=== PATIENT | female | born 1950 | race Caucasian/White ===

== ENCOUNTER 2022-09-29 14:18 | Observation (INO) | payer OTHER ==
--- OUTSIDE RECORDS SUMMARY | 2022-09-29 14:39 | XMS REPORT | Continuity of Care Document ---
:1950 Author Organization [facility] t Address [address] [place] [address] Care Team Providers Name Role Phone AURELIO FRAGOSO Primary Care Physician Unavailable JASBIR BETANCOURT Attending Clinician Unavailable OSMAR DOOLEY Attending Clinician Unavailable Osmar Sanders Attending Clinician [phone] V[facility] Attending Clinician Unavailable KVNG LEONARD Attending Clinician Unavailable Rose Mary Segura Attending Clinician ROSE MARY CHEN Attending Clinician Unavailable MARIELA GODINEZ Attending Clinician Unavailable JASBIR BETANCOURT M.D. Attending Clinician Unavailable DENIZ GARZA APRN Attending Clinician Unavailable CLEMENT RUFFIN APRN Attending Clinician Unavailable GREYSON GUTIERREZ M.D. Attending Clinician Unavailable GREYSON GUTIERREZ PA Attending Clinician Unavailable ELROY LONG M.D. Attending Clinician Unavailable TENNILLE DUONG M.D. Attending Clinician Unavailable LINNETTE VIERA M.D. Attending Clinician Unavailable MARIA ESTHER BLANTON NP Attending Clinician Unavailable B[place]-MS, ECHO Attending Clinician Unavailable MAMADOU LOU D.O. Attending Clinician Unavailable RACHEL JERNIGAN Attending Clinician Unavailable BENNY MAHAN M.D. Attending Clinician Unavailable KVNG PILLAI M.D. Attending Clinician Unavailable B[place]-MS, STRESS Attending Clinician Unavailable OSMAR DOOLEY Admitting Clinician Unavailable Payers Payer Name Policy Type Policy Number Effective Date Expiration Date Yaritza dior [employer] MEDICARE PPO [id number] 2020 00:00:00 [employer] MEDICARE OUT [id number] 2021 OF NETWORK 00:00:00 Problems Condition Condition Condition Status Onset Resolution Last Treating Co mments Source Name Details Category Date Date Treatment Clinician Date No known No known Disease Unive rs active active ity of problems problems [facility] History of History of Problem Resolve UT arthritis arthritis d Phys ici ans History of History of Problem Resolve UT Chronic Chronic d Physici back pain back pain ans History of History of Problem Resolve UT esophageal esophageal d Ph ysici reflux reflux ans History of History of Problem Resolve UT essential essential d Phys ici hypertensi hypertensi an s on on Genital Genital Problem Active UT herpes in herpes in Phys ici women women ans Need for Need for Problem Active UT pneumococc pneumococc Ph ysici al al ans vaccinatio vaccinatio n n Chronic Chronic Problem Active UT sinus sinus Physici complaints complaints an s Hoarseness Hoarseness Problem Active U T Physici ans Screening Screening Problem Active UT cholestero cholestero Ph ysici l level l level ans On statin On statin Problem Active UT therapy therapy Physici ans Allergic Allergic Problem Active UT rhinitis rhinitis Physic i ans Excessive Excessive Problem Active UT ear wax ear wax Physici ans Herpes Herpes Problem Active UT simplex simplex Physici type 1 type 1 ans infection infection Other Other Problem Active UT chronic chronic Physici pain pain ans Vitamin D Vitamin D Problem Active UT deficiency deficiency Ph ysici ans 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 ans back pain back pain Numbness Numbness Problem Active UT and and Physici tingling tingling ans Screen for Screen for Problem Active U T colon colon Physici cancer cancer ans Screening Screening Problem Active UT mammogram, mammogram, Ph ysici encounter encounter ans for for Osteoporos Osteoporos Problem Active U T is is Physici screening screening ans Post-menop Post-menop Problem Active U T ausal ausal Physici ans Itch Itch Problem Active UT Physici ans Abnormal Abnormal Problem Active UT LFTs LFTs Physici ans GERD GERD Problem Active UT (gastroeso (gastroeso Ph ysici phageal phageal ans reflux reflux disease) disease) Tingling Tingling Problem Active UT in in Physici extremitie extremitie an s s s Chest pain Chest pain Problem Active U T Physici ans Panic Panic Problem Active UT disorder disorder Physic i ans Recurrent Recurrent Problem Active UT major major Physici depressive depressive an s disorder, disorder, 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 History of History of Problem Active U T colon colon Physici polyps polyps ans Atypical Atypical Problem Active UT chest pain chest pain Ph ysici ans Benign Benign Problem Active UT essential essential Phys ici hypertensi hypertensi an s on on Chronic Chronic Problem Active UT insomnia insomnia Physic i ans Blephariti Blephariti Problem Active U T s, right s, right Physic i eye eye ans Dyspnea Dyspnea Problem Active UT Physici ans Action Action Problem Active UT tremor tremor Physici ans Hyperlipid Hyperlipid Problem Active U T emia emia Physici ans Depression Depression Problem Active U T screen screen Physici ans Risk for Risk for Problem Active UT falls falls Physici ans Insomnia Insomnia Problem Active UT Physici ans Essential Essential Problem Active UT tremor tremor Physici ans Weight Weight Problem Active UT loss loss Physici ans 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 Ph ysici e e ans elevation elevation Mammogram Mammogram Problem Active UT declined declined Physic i ans Mouth Mouth Problem Active UT ulcer ulcer Physici ans Anxiety Anxiety Problem Active UT and and Physici depression depression an s Nausea Nausea Problem Active UT Physici ans Abdominal Abdominal Problem Active UT pain pain Physici ans Blood in Blood in Problem Active UT stool stool Physici ans Diverticul Diverticul Problem Active U T osis of osis of Physici colon colon ans History of History of Problem Active U T dry mouth dry mouth Phys ici ans Glossodyni Glossodyni Problem Active U T a a Physici ans Nausea and Nausea and Problem Active U T vomiting vomiting Physic i ans Chronic Chronic Problem Active UT diarrhea diarrhea Physic i ans Sore Sore Problem Active UT throat throat Physici ans Acute Acute Problem Active UT streptococ streptococ Ph ysici argelia argelia ans pharyngiti pharyngiti s s Skin Skin Problem Active UT lesion lesion Physici ans Major Major Problem Active UT depression depression Ph ysici , , ans recurrent, recurrent, chronic chronic Vaginal Vaginal Problem Active UT itching itching Physici ans Actinic Actinic Problem Active UT keratoses keratoses Phys ici ans Refused Refused Problem Active UT influenza influenza Phys ici vaccine vaccine ans Encounter Encounter Problem Active UT for for Physici monitoring monitoring an s diuretic diuretic therapy therapy Allergies, Adverse Reactions, Alerts Allergy Allergy Status Severity Reaction(s) Onset Inactive Treating Comm ents Source Name Type Date Date Clinician No Known DA Active U 2017- [facility] Allergie 2-07 Clear s 00:00: [place] 00 [facility] NO KNOWN Drug Active Univers ALLERGIE Class ity of S [place] [facility] Family History Family Member Diagnosis Comments Start Date Stop Date Source natural daughter Family history of [facility] alcoholism natural daughter Family history of [facility] depression natural daughter Family history of [facility] attention deficit disorder Social History Social Habit Start Date Stop Date Quantity Comments Source Exposure to 2022-03-24 2022-04-03 Not sure [facility] SARS-CoV-2 (event) 00:00:00 09:33:00 [facility] [place] Sex Assigned At [birth year] [facility] 00:00:00 00:00:00 Medical Branch Smoking Status Start Date Stop Date Source Never smoker [facility] Medications Ordered Filled Start Stop Current Ordering Indication Dosage Frequency Signature Comments Components Source Medication Medication Date Date Medication? Clinician (SIG) Name Name methylPREDN 2021- No [id number] 80mg Univers ISolone 03-25 ity of acetate 16:45: 16:44 [place] (DEPO-MEDRO 00 :00 Medical L) 80 mg/mL Branch 80 mg, lidocaine 1% (PF) (XYLOCAINE) 6 mL, bupivacaine (preserv free) 0.5% (SENSORCAIN E MPF) 0.5 % (5 mg/mL) 3 mL 10 mL injection methylPREDN 2021- No [id number] 80mg Intra-aide Univers ISolone 03-25 91 cular, ity of acetate 16:45: 16:44 ONCE, 1 [place] (DEPO-MEDRO 00 :00 dose, On Medi argelia L) 80 mg/mL Tue Branch 80 mg, 03/25/22 at lidocaine 1145, 10 1% (PF) mL (XYLOCAINE) 6 mL, bupivacaine (preserv free) 0.5% (SENSORCAIN E MPF) 0.5 % (5 mg/mL) 3 mL 10 mL injection No known No Univers medications 03-25 ity of 11:00: [place] 39 [facility] Branch methylPREDN No [id number] Take by [facility] 4 3-07 05-10 mouth ity of mg tablets 00:00: 00:00 SEE-INSTRU [place] 00 :00 CTIONS. Medical follow Branch package directions hydroCHLORO hydroCHLORO 2019-11 Yes MOHAMMAD TAKE 1 UT thiazide 25 thiazide 25 1-30 MADJID TABLET BY Physici MG Oral MG Oral 00:00: M.D. MOUTH ans Tablet Tablet 00 EVERY MORNING Metoprolol Metoprolol Yes MOHAMMAD TAKE 1 UT Succinate Succinate 8-13 MADJID TABLET BY Physici ER 50 MG ER 50 MG 00:00: M.D. MOUTH ans Oral Tablet Oral Tablet 00 EVERY DAY Extended Extended Release 24 Release 24 Hour Hour Losartan Losartan 2018-11 Yes MOHAMMAD Q0.5D Take 1 UT Potassium Potassium 2-17 MADJID tablet by Physici 50 MG Oral 50 MG Oral 00:00: M.D. mouth ans Tablet Tablet 00 twice a day Omeprazole Omeprazole 2018- Yes GREYSON QD TAKE 1 UT 40 MG Oral 40 MG Oral 9-24 MATT CAPSULE BY Physici Capsule Capsule 00:00: PA MOUTH ans Delayed Delayed 00 EVERY DAY Release Release Zolpidem Zolpidem 2018- Yes [place] TAKE 1 UT Tartrate 10 Tartrate 10 5-24 SATTAR TABLET BY Physici MG Oral MG Oral 00:00: M.D. MOUTH AT ans Tablet Tablet 00 BEDTIME Propranolol Propranolol 2018- Yes [place] 1 QD TAKE 1 UT HCl - 10 MG HCl - 10 MG 5-24 SATTAR TABLET Physici Oral Tablet Oral Tablet 00:00: M.D. DAILY ans 00 Shingrix 50 Shingrix 50 2018- Yes [place] IM: 0.5 mL UT MCG MCG 1-17 SATTAR 2-dose Physici Intramuscul Intramuscul 00:00: M.D. series at ans ar ar 00 0 and 2 to Suspension Suspension 6 months Reconstitut Reconstitut ed ed Vitamin D Vitamin D Yes UT 1000 UNIT 1000 UNIT Physi ci CAPS CAPS ans Desvenlafax Desvenlafax Yes 1 tablet UT ine ER 100 ine ER 100 by mouth Physici MG Oral MG Oral once daily ans Tablet Tablet Extended Extended Release 24 Release 24 Hour Hour Ondansetron Ondansetron Yes 1 TABLET UT 4 MG Oral 4 MG Oral BY MOUTH P hysici Tablet Tablet EVERY 8 ans Disintegrat Disintegrat HOURS ing ing NEEDED FOR NAUSEA. HYDROcodone HYDROcodone Yes 1 Q8H TAKE 1 UT -Acetaminop -Acetaminop TABLET Physici hen 10-325 hen 10-325 EVERY 8 ans MG Oral MG Oral HOURS PRN Tablet Tablet tiZANidine tiZANidine Yes TAKE UT HCl - 4 MG HCl - 4 MG CAPSULE Physici Oral Oral PRN ans Capsule Capsule valACYclovi valACYclovi Yes 1 QD TAKE 1 UT r HCl - 500 r HCl - 500 TABLET Physici MG Oral MG Oral DAILY. ans Tablet Tablet Immunizations Ordered Immunization Filled Immunization Date Status Commen ts Source Name Name Project Bionic 2020-12-19 Completed [facility] COVID-19 Vacc 30 14:40:00 MCG/0.3ML Intramuscular Suspension Shingrix 50 MCG/0.5ML 2020-07-17 Completed [facility] Intramuscular 00:00:00 Suspension Reconstituted Fluzone Quadrivalent 2018-08-09 Completed [facility] P [facility]ysicians 0.5 ML Intramuscular 00:00:00 Suspension Prefilled Syringe Hepatitis A, adult 2017-08-27 Completed [facility] 09:01:00 Fluzone High-Dose 0.5 2017-08-26 Completed [facility] ML Intramuscular 15:09:00 Suspension Prefilled Syringe Hepatitis B, adult 2017-08-26 Completed [facility] 08:12:00 Pneumococcal 2016-10-23 Completed [facility] polysaccharide 16:02:00 vaccine, 23 valent Fluzone Quadrivalent 2016-09-22 Completed [facility] 0.5 ML Intramuscular 11:35:00 Suspension Fluzone Quadrivalent 2015-10-16 Completed [facility] 0.5 ML Intramuscular 00:00:00 Suspension Prevnar 13 2015-05-09 Completed [facility] Intramuscular 00:00:00 Suspension Zoster (Zostavax) 2013-08-04 Completed [facility] 00:00:00 Tdap 2009-08-04 Completed [facility] 00:00:00 Vital Signs Vital Name Observation Time Observation Value Comments Source Systolic blood 2022-03-25 147 mm[Hg] University of pressure 16:00:00 [facility] Diastolic blood 2022-03-25 83 mm[Hg] University o f pressure 16:00:00 [facility] Heart rate 2022-03-25 69 /min University of 16:00:00 [facility] Body temperature 2022-03-25 36.28 Kirsten University of 16:00:00 [facility] Body height 2022-03-25 154.9 cm University of 16:00:00 [facility] Body weight 2022-03-25 62.914 kg University of 16:00:00 [facility] BMI 2022-03-25 26.21 kg/m2 University :00:00 [facility] Systolic blood 2020-10-15 138 mm[Hg] [place] [facility] pressure 15:39:00 Position: Sitting Diastolic blood 2020-10-15 82 mm[Hg] [place] [facility] pressure 15:39:00 Position: Sitting Body height 2020-10-15 61 [in_us] [facility] 15:39:00 Weight 2020-10-15 133 [lb_av] [facility] 15:39:00 Body mass index 2020-10-15 25.13 kg/m2 [facility] (BMI) [Ratio] 15:39:00 Heart Rate 2020-10-15 62 /min [facility] 15:39:00 Systolic blood 2020-08-16 120 mm[Hg] Location[place] [facility] pressure 14:43:00 Position: Sitting Diastolic blood 2020-08-16 75 mm[Hg] Location[place]; [place] [facility] [facility] pressure 14:43:00 Position: Sitting Body height 2020-08-16 61 [in_us] [facility] 14:43:00 Weight 2020-08-16 132.1875 [lb_av] [facility] ns 14:43:00 Body mass index 2020-08-16 24.98 kg/m2 [facility] (BMI) [Ratio] 14:43:00 Body temperature 2020-08-16 98 [degF] Method: [facility] ns 14:43:00 Temporal Respiratory rate 2020-08-16 16 /min [facility] ns 14:43:00 Heart Rate 2020-08-16 65 /min Location: [place] [facility] 14:43:00 Brachial Artery; Systolic blood 2020-01-09 103 mm[Hg] Location[place] [facility] pressure 16:04:00 Position: Sitting Diastolic blood 2020-01-09 71 mm[Hg] [place] [facility] [facility] pressure 16:04:00 Position: Sitting Body height 2020-01-09 61 [in_us] [facility] 16:04:00 Weight 2020-01-09 129 [lb_av] [facility] 16:04:00 Body mass index 2020-01-09 24.37 kg/m2 [facility] (BMI) [Ratio] 16:04:00 Body temperature 2020-01-09 97.6 [degF] Method: [facility] ns 16:04:00 Temporal Heart Rate 2020-01-09 73 /min [facility] 16:04:00 Respiratory rate 2020-01-09 15 /min [facility] Phys[facility] ns 16:04:00 BP Systolic 2019-10-18 118 mm[Hg] [place] [facility] 15:33:00 Position: Sitting BP Diastolic 2019-10-18 72 mm[Hg] [place] [facility] 15:33:00 Position: Sitting Height 2019-10-18 61 [in_us] [facility] 15:33:00 Weight 2019-10-18 124 [lb_av] [facility] 15:33:00 Body Mass Index 2019-10-18 23.43 kg/m2 [facility] Calculated 15:33:00 Heart Rate 2019-10-18 49 /min Location: [place] [facility] 15:33:00 Radial; Quality: Normal BP Systolic 2019-09-08 154 mm[Hg] Location: [place] [facility] 15:05:00 Position: Sitting BP Diastolic 2019-09-08 91 mm[Hg] Location[place] [facility] 15:05:00 Position: Sitting Height 2019-09-08 61 [in_us] [facility] 15:05:00 Weight 2019-09-08 125.1875 [lb_av] [place] [facility] 15:05:00 Body Mass Index 2019-09-08 23.65 kg/m2 [facility] Calculated 15:05:00 Heart Rate 2019-09-08 60 /min Location: [place] [facility] 15:05:00 Brachial Artery; BP Systolic 2019-08-30 125 mm[Hg] Location: [place] [facility] 14:24:00 Position: Sitting BP Diastolic 2019-08-30 76 mm[Hg] Location[place] [facility] 14:24:00 Position: Sitting Height 2019-08-30 61 [in_us] [facility] 14:24:00 Weight 2019-08-30 124 [lb_av] [facility] 14:24:00 Body Mass Index 2019-08-30 23.43 kg/m2 [facility] Calculated 14:24:00 Heart Rate 2019-08-30 59 /min [facility] 14:24:00 BP Systolic 2019-08-09 127 mm[Hg] Location: [place]; [facility] 15:04:00 Position: Sitting BP Diastolic 2019-08-09 79 mm[Hg] Location: [place]; [facility] 15:04:00 Position: Sitting Height 2019-08-09 61 [in_us] [facility] 15:04:00 Weight 2019-08-09 122 [lb_av] [facility] 15:04:00 Body Mass Index 2019-08-09 23.05 kg/m2 [facility] Calculated 15:04:00 Heart Rate 2019-08-09 61 /min [facility] 15:04:00 BP Systolic 2019-08-08 142 mm[Hg] [place] [facility] 15:23:00 Position: Sitting BP Diastolic 2019-08-08 83 mm[Hg] [place] [facility] 15:23:00 Position: Sitting Height 2019-08-08 61 [in_us] [facility] 15:23:00 Weight 2019-08-08 124 [lb_av] [facility] 15:23:00 Body Mass Index 2019-08-08 23.43 kg/m2 [facility] Calculated 15:23:00 Heart Rate 2019-08-08 57 /min [facility] 15:23:00 Respiration Rate 2019-08-08 16 /min [place] [facility] 15:23:00 BP Systolic 2019-06-02 132 mm[Hg] [place] [facility] 15:05:00 Position: Sitting BP Diastolic 2019-06-02 76 mm[Hg] [place] [facility] 15:05:00 Position: Sitting Heart Rate 2019-06-02 57 /min Location: L [facility] 15:05:00 Brachial Artery; BP Systolic 2019-06-02 142 mm[Hg] [place] [facility] 15:01:00 Position: Sitting BP Diastolic 2019-06-02 80 mm[Hg] [place] [facility] 15:01:00 Position: Sitting Heart Rate 2019-06-02 59 /min Location: L [facility] 15:01:00 Brachial Artery; Height 2019-06-02 61 [in_us] [facility] 15:01:00 Weight 2019-06-02 132.0625 [lb_av] [facility] 15:01:00 Body Mass Index 2019-06-02 24.95 kg/m2 [facility] Calculated 15:01:00 Temperature 2019-06-02 97.4 [degF] Method: [facility] 15:01:00 Temporal Respiration Rate 2019-06-02 16 /min Quality: Normal [facility] 15:01:00 BP Systolic 2019-04-08 127 mm[Hg] Location: [place]; [facility] 14:47:00 Position: Sitting BP Diastolic 2019-04-08 73 mm[Hg] Location: [place]; [facility] 14:47:00 Position: Sitting Height 2019-04-08 61 [in_us] [facility] 14:47:00 Weight 2019-04-08 134 [lb_av] [facility] 14:47:00 Body Mass Index 2019-04-08 25.32 kg/m2 [facility] Calculated 14:47:00 Temperature 2019-04-08 98 [degF] Method: [facility] 14:47:00 Temporal Heart Rate 2019-04-08 53 /min [facility] 14:47:00 Respiration Rate 2019-04-08 16 /min [facility] 14:47:00 BP Systolic 2019-01-10 136 mm[Hg] Location: [place]; [facility] 15:12:00 Position: Sitting BP Diastolic 2019-01-10 84 mm[Hg] Location: [place]; [facility] 15:12:00 Position: Sitting Height 2019-01-10 61 [in_us] [facility] 15:12:00 Weight 2019-01-10 144 [lb_av] [facility] 15:12:00 Body Mass Index 2019-01-10 27.21 kg/m2 [facility] Calculated 15:12:00 Heart Rate 2019-01-10 68 /min [facility] 15:12:00 Respiration Rate 2019-01-10 16 /min [facility] 15:12:00 BP Systolic 2018-12-16 107 mm[Hg] Location: [place]; [facility] 14:56:00 Position: Sitting BP Diastolic 2018-12-16 72 mm[Hg] Location: [place]; [facility] 14:56:00 Position: Sitting Height 2018-12-16 61 [in_us] [facility] 14:56:00 Weight 2018-12-16 141.125 [lb_av] [facility] 14:56:00 Body Mass Index 2018-12-16 26.67 kg/m2 [facility] Calculated 14:56:00 Heart Rate 2018-12-16 87 /min [facility] 14:56:00 Respiration Rate 2018-12-16 16 /min [facility] 14:56:00 BP Systolic 2018-12-02 109 mm[Hg] [place] [facility] 11:17:00 Position: Sitting BP Diastolic 2018-12-02 70 mm[Hg] [place] [facility] 11:17:00 Position: Sitting Height 2018-12-02 61 [in_us] [facility] 11:17:00 Weight 2018-12-02 138.0625 [lb_av] [facility] 11:17:00 Body Mass Index 2018-12-02 26.09 kg/m2 [facility] Calculated 11:17:00 Heart Rate 2018-12-02 82 /min [facility] 11:17:00 Respiration Rate 2018-12-02 16 /min [facility] 11:17:00 Temperature 2018-12-02 98 [degF] Method: [facility] 11:17:00 Temporal BP Systolic 2018-08-31 125 mm[Hg] Location[place] [facility] 14:24:00 Position: Sitting BP Diastolic 2018-08-31 80 mm[Hg] [place] [facility] 14:24:00 Position: Sitting Height 2018-08-31 61 [in_us] [facility] 14:24:00 Weight 2018-08-31 137.5 [lb_av] [facility] 14:24:00 Body Mass Index 2018-08-31 25.98 kg/m2 [facility] Calculated 14:24:00 Heart Rate 2018-08-31 102 /min [facility] 14:24:00 BP Systolic 2018-08-25 135 mm[Hg] Location[place] [facility] 15:42:00 Position: Sitting BP Diastolic 2018-08-25 87 mm[Hg] [place] [facility] 15:42:00 Position: Sitting Height 2018-08-25 61 [in_us] [facility] 15:42:00 Weight 2018-08-25 140.1875 [lb_av] [facility] 15:42:00 Body Mass Index 2018-08-25 26.49 kg/m2 [facility] Calculated 15:42:00 Heart Rate 2018-08-25 99 /min Location: L [facility] 15:42:00 Brachial Artery; Temperature 2018-08-25 98.1 [degF] Method: [facility] 15:42:00 Temporal Respiration Rate 2018-08-25 16 /min Quality: Normal [facility] 15:42:00 BP Systolic 2018-08-17 122 mm[Hg] Location: [place]; [facility] 16:06:00 Position: Sitting BP Diastolic 2018-08-17 73 mm[Hg] Location: [place]; [facility] 16:06:00 Position: Sitting Height 2018-08-17 61 [in_us] [facility] 16:06:00 Weight 2018-08-17 137.125 [lb_av] [facility] 16:06:00 Body Mass Index 2018-08-17 25.91 kg/m2 [facility] Calculated 16:06:00 Heart Rate 2018-08-17 85 /min [facility] 16:06:00 BP Systolic 2018-08-16 118 mm[Hg] [place] [facility] 15:26:00 Position: Sitting BP Diastolic 2018-08-16 79 mm[Hg] Location: [place]; [facility] 15:26:00 Position: Sitting Height 2018-08-16 61 [in_us] [facility] 15:26:00 Weight 2018-08-16 135.375 [lb_av] [facility] 15:26:00 Body Mass Index 2018-08-16 25.58 kg/m2 [facility] Calculated 15:26:00 Heart Rate 2018-08-16 79 /min [facility] 15:26:00 Temperature 2018-08-16 97.8 [degF] Method: [facility] 15:26:00 Temporal Respiration Rate 2018-08-16 14 /min [facility] 15:26:00 BP Systolic 2018-08-09 126 mm[Hg] [place] 14:11:00 Position: Sitting BP Diastolic 2018-08-09 85 mm[Hg] [place] [facility] 14:11:00 Position: Sitting Height 2018-08-09 61 [in_us] [facility] 14:11:00 Weight 2018-08-09 136 [lb_av] [facility] 14:11:00 Body Mass Index 2018-08-09 25.7 kg/m2 [facility] Calculated 14:11:00 Heart Rate 2018-08-09 80 /min [facility] 14:11:00 Temperature 2018-08-09 97.6 [degF] Method: [facility] 14:11:00 Temporal Respiration Rate 2018-08-09 16 /min [facility] 14:11:00 BP Systolic 2018-07-15 149 mm[Hg] Location: [place]; [facility] 14:21:00 Position: Sitting BP Diastolic 2018-07-15 93 mm[Hg] Location: [place]; [facility] 14:21:00 Position: Sitting Height 2018-07-15 61 [in_us] [facility] 14:21:00 Weight 2018-07-15 134.3125 [lb_av] [facility] 14:21:00 Body Mass Index 2018-07-15 25.38 kg/m2 [facility] Calculated 14:21:00 Temperature 2018-07-15 98.2 [degF] Method: [facility] 14:21:00 Temporal Heart Rate 2018-07-15 86 /min Location: L [facility] 14:21:00 Brachial Artery; Respiration Rate 2018-07-15 16 /min Quality: Normal [facility] 14:21:00 BP Systolic 2018-06-24 128 mm[Hg] [place] [facility] 15:48:00 Position: Sitting BP Diastolic 2018-06-24 82 mm[Hg] Location: [place]; [facility] 15:48:00 Position: Sitting Height 2018-06-24 61 [in_us] [facility] 15:48:00 Weight 2018-06-24 135 [lb_av] [facility] 15:48:00 Body Mass Index 2018-06-24 25.51 kg/m2 [facility] Calculated 15:48:00 Heart Rate 2018-06-24 92 /min [facility] 15:48:00 BP Systolic 2018-05-14 138 mm[Hg] Location: [place]; [facility] 16:11:00 Position: Sitting BP Diastolic 2018-05-14 86 mm[Hg] Location: [place]; [facility] 16:11:00 Position: Sitting Height 2018-05-14 61 [in_us] [facility] 16:11:00 Weight 2018-05-14 135.125 [lb_av] [facility] 16:11:00 Body Mass Index 2018-05-14 25.53 kg/m2 [facility] Calculated 16:11:00 Temperature 2018-05-14 98.1 [degF] Method: [facility] 16:11:00 Temporal Heart Rate 2018-05-14 86 /min [facility]: [facility] 16:11:00 Brachial Artery; Respiration Rate 2018-05-14 16 /min Quality: Normal [facility] 16:11:00 BP Systolic 2018-03-19 111 mm[Hg] Location: [place]; [facility] 15:01:00 Position: Sitting BP Diastolic 2018-03-19 72 mm[Hg] Location: [place]; [facility] 15:01:00 Position: Sitting Height 2018-03-19 61 [in_us] [facility] 15:01:00 Weight 2018-03-19 129 [lb_av] [facility] 15:01:00 Body Mass Index 2018-03-19 24.37 kg/m2 [facility] Calculated 15:01:00 Temperature 2018-03-19 97.9 [degF] Method: [facility] 15:01:00 Temporal Heart Rate 2018-03-19 96 /min Quality: Normal [facility] 15:01:00 BP Systolic 2017-12-24 100 mm[Hg] Location: LUE; [facility] 15:12:00 Position: Sitting BP Diastolic 2017-12-24 66 mm[Hg] Location: LUE; [facility] 15:12:00 Position: Sitting Height 2017-12-24 61 [in_us] [facility] 15:12:00 Weight 2017-12-24 133.375 [lb_av] [facility] 15:12:00 Body Mass Index 2017-12-24 25.2 kg/m2 [facility] Calculated 15:12:00 Temperature 2017-12-24 98.5 [degF] Method: Oral [facility] 15:12:00 Heart Rate 2017-12-24 68 /min Location: L [facility] 15:12:00 Brachial Artery; Respiration Rate 2017-12-24 16 /min Quality: Normal [facility] 15:12:00 BP Systolic 2017-12-23 183 mm[Hg] Location: LUE; [facility] 15:28:00 Position: Standing BP Diastolic 2017-12-23 123 mm[Hg] Location: LUE; [facility] 15:28:00 Position: Standing Heart Rate 2017-12-23 75 /min [facility] 15:28:00 BP Systolic 2017-12-23 178 mm[Hg] Location: LUE; [facility] 15:27:00 Position: Sitting BP Diastolic 2017-12-23 107 mm[Hg] Location: LUE; [facility] 15:27:00 Position: Sitting Heart Rate 2017-12-23 71 /min [facility] 15:27:00 BP Systolic 2017-12-23 177 mm[Hg] Location: LUE; [facility] 15:26:00 Position: Supine BP Diastolic 2017-12-23 96 mm[Hg] Location: LUE; [facility] 15:26:00 Position: Supine Heart Rate 2017-12-23 67 /min [facility] 15:26:00 BP Systolic 2017-12-23 166 mm[Hg] Location: LUE; [facility] 15:07:00 Position: Sitting BP Diastolic 2017-12-23 88 mm[Hg] Location: LUE; [facility] 15:07:00 Position: Sitting BP Systolic 2017-12-23 166 mm[Hg] Location: LUE; [facility] 15:01:00 Position: Sitting BP Diastolic 2017-12-23 100 mm[Hg] Location: [place]UE; [facility] 15:01:00 Position: Sitting Height 2017-12-23 61 [in_us] [facility] 15:01:00 Weight 2017-12-23 133 [lb_av] [facility] 15:01:00 Body Mass Index 2017-12-23 25.13 kg/m2 [facility] Calculated 15:01:00 Temperature 2017-12-23 98 [degF] Method: [facility] 15:01:00 Temporal Respiration Rate 2017-12-23 16 /min [facility] 15[facility]01:00 Heart Rate 2017-12-23 88 /min [facility] 15:01:00 BP Systolic 2017-11-26 152 mm[Hg] Location: LUE; [facility] 13:29:00 Position: Sitting BP Diastolic 2017-11-26 92 mm[Hg] Location: LUE[facility] 13:29:00 Position: Sitting Height 2017-11-26 61 [in_us] [facility] 13:29:00 Weight 2017-11-26 134.5 [lb_av] [facility] 13:29:00 Body Mass Index 2017-11-26 25.41 kg/m2 [facility] Calculated 13:29:00 Temperature 2017-11-26 97.1 [degF] Method: [facility] 13:29:00 Temporal Heart Rate 2017-11-26 87 /min Location: L [facility] 13:29:00 Brachial Artery; Respiration Rate 2017-11-26 16 /min Quality: Normal [facility] 13:29:00 BP Systolic 2017-11-19 132 mm[Hg] Location: LUE; [facility] 14:41:00 Position: Sitting BP Diastolic 2017-11-19 86 mm[Hg] Location: LUE; [facility] 14:41:00 Position: Sitting Height 2017-11-19 61 [in_us] [facility] 14:41:00 Weight 2017-11-19 129 [lb_av] [facility] 14:41:00 Body Mass Index 2017-11-19 24.37 kg/m2 [facility] Calculated 14:41:00 Temperature 2017-11-19 98.4 [degF] Method: [facility] 14:41:00 Temporal Heart Rate 2017-11-19 99 /min Location: L [facility] 14:41:00 Brachial Artery; Respiration Rate 2017-11-19 16 /min Quality: Normal [facility] 14:41:00 BP Systolic 2017-10-21 141 mm[Hg] Location: LUE; [facility] 16:25:00 Position: Sitting BP Diastolic 2017-10-21 86 mm[Hg] Location: LUE; [facility] 16:25:00 Position: Sitting Height 2017-10-21 61 [in_us] [facility] 16:25:00 Weight 2017-10-21 128.5 [lb_av] [facility] 16:25:00 Body Mass Index 2017-10-21 24.28 kg/m2 [facility] Calculated 16:25:00 Temperature 2017-10-21 97.1 [degF] Method: [facility] 16:25:00 Temporal Heart Rate 2017-10-21 92 /min Location: L [facility] 16:25:00 Brachial Artery; Respiration Rate 2017-10-21 16 /min Quality: Normal [facility] 16:25:00 BP Systolic 2017-09-16 139 mm[Hg] Location: LUE; [facility] 13:14:00 Position: Sitting BP Diastolic 2017-09-16 83 mm[Hg] Location: LUE; [facility] 13:14:00 Position: Sitting Height 2017-09-16 61 [in_us] [facility] 13:14:00 Weight 2017-09-16 129.125 [lb_av] [facility] 13:14:00 Body Mass Index 2017-09-16 24.4 kg/m2 [facility] Calculated 13:14:00 Temperature 2017-09-16 96.6 [degF] Method: [facility] 13:14:00 Temporal Heart Rate 2017-09-16 97 /min Location: L [facility] 13:14:00 Brachial Artery; Respiration Rate 2017-09-16 16 /min [facility] 13:14:00 Procedures Procedure Date / Time Performing Clinician Source Performed DEXA PERIPHERAL (FOREARM) [facility] COMP. METABOLIC PANEL 2022-03-25 [id number] [QL] BASIC METABOLIC 2020-10-15 00:00:00 [facility] PANEL W/EGFR [Q] LIPID PANEL WITH 2020-05-08 00:00:00 [facility] REFLEX TO DIRECT LDL [QL] CMP W/EGFR 2020-05-08 00:00:00 [facility] [QLH] CULTURE, STOOL 2019-10-18 00:00:00 [facility] (CAMPYLOBACTER, SALMONELLA/SHIGELLA) [QLH] CLOSTRIDIUM 2019-10-18 00:00:00 [facility] DIFFICILE TOXIN A AND B, EIA [QLH] FECAL LEUKOCYTE 2019-10-18 00:00:00 [facility] STAIN [QLH] CALPROTECTIN, STOOL 2019-10-18 00:00:00 [facility] EGD 2019-08-10 00:00:00 [facility] (Esophagogastroduodenosco py) CT Abdomen/Pelvis w/wo 2019-08-09 00:00:00 [facility] contrast 12049 [QH] LIPID PANEL WITH 2019-08-08 00:00:00 [facility] REFLEX TO DIRECT LDL [QLH] CMP W/EGFR 2019-08-08 00:00:00 [facility] [QLH] ALKALINE 2019-04-13 00:00:00 [facility] PHOSPHATASE ISOENZYMES (ALP ISO.) [QLH] GGT 2019-04-13 00:00:00 [facility] [Q] HEPATITIS PANEL, 2019-04-13 00:00:00 [facility] ACUTE W/REFLEX US Liver [id number] 2019-04-13 00:00:00 [facility] [QLH] CBC (INCLUDES 2019-04-08 00:00:00 [facility] DIFF/PLT) [QLH] CMP W/EGFR 2019-04-08 00:00:00 [facility] [QLH] TSH, 3RD GENERATION 2019-04-08 00:00:00 [facility] W/REFLEX TO FT4 [Q] CULTURE, STOOL, 2019-04-08 00:00:00 [facility] HAILEY/SHIG/CAMPY AND SHIGA TOXINS EIA W/RFL E.COLI O157 CULT [Q] OVA AND PARASITES, 2019-04-08 00:00:00 [facility] STOOL CONC/PERM SMEAR, 2 SPEC [QLH] FECAL LEUKOCYTE 2019-04-08 00:00:00 [facility] STAIN [QLH] CLOSTRIDIUM 2019-04-08 00:00:00 [facility] DIFFICILE TOXIN A AND B, EIA [QLH] MAGNESIUM 2019-04-08 00:00:00 [facility] [QLH] PHOSPHATE ( 2019-04-08 00:00:00 [facility] PHOSPHORUS) Abdomen AP view [id number] 2019-04-08 00:00:00 [facility] [QH] LIPID PANEL WITH 2019-01-10 00:00:00 [facility] REFLEX TO DIRECT LDL [QLH] HEPATIC FUNCTION 2019-01-10 00:00:00 [facility] PANEL [QH] LIPID PANEL WITH 2018-08-31 00:00:00 [facility] REFLEX TO DIRECT LDL [QLH] HEPATIC FUNCTION 2018-08-31 00:00:00 [facility] PANEL [N] 2D Echo complete, 2018-08-17 00:00:00 [facility] with Doppler [id number] [QH] LIPID PANEL WITH 2018-08-09 00:00:00 [facility] REFLEX TO DIRECT LDL [QLH] CBC (INCLUDES 2018-08-09 00:00:00 [facility] DIFF/PLT) [QLH] CMP W/EGFR 2018-08-09 00:00:00 [facility] [QLH] TSH, 3RD GENERATION 2018-08-09 00:00:00 [facility] W/REFLEX TO FT4 Colonoscopy 2018-06-28 00:00:00 [facility] History of [facility] Surgery [facility] Reconstruction [facility] Hysterectomy [facility] Plan of Care Planned Activity Planned Date Details Comments Source Future Scheduled Test 2020-12-03 [QL] BASIC METABOLIC [facility] 00:00:00 PANEL W/EGFR [code = [QL] BASIC METABOLIC PANEL W/EGFR] Diagnostic Test 2020-01-23 [QH] LIPID PANEL WITH [facility] Pending 00:00:00 REFLEX TO DIRECT LDL [code = [QH] LIPID PANEL WITH REFLEX TO DIRECT LDL] Diagnostic Test 2020-01-23 [QLH] CMP W/EGFR [code [facility] Pending 00:00:00 = [QLH] CMP W/EGFR] Diagnostic Test 2019-08-16 EGD [facility] Pending 00:00:00 (Esophagogastroduodeno scopy) [code = EGD (Esophagogastroduodeno scopy)] Diagnostic Test 2019-08-16 EGD [facility] Pending 00:00:00 (Esophagogastroduodeno scopy) [code = EGD (Esophagogastroduodeno scopy)] Diagnostic Test 2019-06-16 [QH] LIPID PANEL WITH [facility] Pending 00:00:00 REFLEX TO DIRECT LDL [code = [QH] LIPID PANEL WITH REFLEX TO DIRECT LDL] Diagnostic Test 2019-06-16 [QLH] HEPATIC FUNCTION [facility] Pending 00:00:00 PANEL [code = [QLH] HEPATIC FUNCTION PANEL] Diagnostic Test 2018-10-25 [QH] LIPID PANEL WITH [facility]ending 00:00:00 REFLEX TO DIRECT LDL [code = [QH] LIPID PANEL WITH REFLEX TO DIRECT LDL] Diagnostic Test 2018-10-25 [QLH] HEPATIC FUNCTION [facility] Pending 00:00:00 PANEL [code = [QLH] HEPATIC FUNCTION PANEL] Diagnostic Test 2018-08-17 [N] 2D Echo complete, [facility] Pending 00:00:00 with Doppler 57008 [code = [N] 2D Echo complete, with Doppler [id number]] Diagnostic Test 2018-06-29 Colonoscopy [code = [facility] 00:00:00 [id number]] Encounters Start End Encounter Admission Attending Care Care Encounter Source Date/Time Date/Time Type Type Clinicians Facility Department ID 2022-08-11 Outpatient [facility] [id number] [place] 17:32:05 [id number] [facility] 2021-03-23 Outpatient ASIA [facility] [id number] [place] 02:53[facility] 2022-04-03 2022-04-03 Outpatient [facility] [id number] Univers 09:34:18 23:59:00 iveth XIAOy of [place] [facility] 2022-04-03 2022-04-03 [facility] [id number] Univers 09:30:00 23:59:00 Encounter denisa, SPECIALTY [id number] it[id number] [place] bailee HORN 800 [facility] 2022-03-25 2022-03-25 [facility] [id number] Univers 11:24:38 23:59:00 Encounter denisa SPECIALTY [id number] it[id number] [id number] [place] bailee HORN 809 [facility] 2022-03-25 2022-03-25 Outpatient [facility] [id number] Univers 11:24:38 23:59:00 [facility]-25 2022-03-25 [facility] [id number] Univers 11:24:28 23:59:00 Encounter denisa SPECIALTY [id number] it[id number] [id number] Mn bailee DAYANAYousif [address] [place] [address] 2022-03-25 2022-03-25 Cadmium Plater Vls-Lab [facility] [id number] Univers 13:45:00 14:00:00 Visit Osmar Dooley SPECIALTY [id number] [id number] [id number] [place] bailee HORN 353 [facility] 2022-03-25 2022-03-25 Outpatient [facility] [id number] Univers 10:40:00 11:51:34 iveth XIAOy [facility] 2022-03-25 2022-03-25 Office [facility] [id number] Univers 10:40:00 11:51:34 Visit garymalcolmon, SPECIALTY [id number] ity [facility] [id number] [id number] Mn bailee HORN 198 [facility] 2022-02-13 2022-02-13 Outpatient [facility] [id number] Univers 11:20:00 11:20:00 ethan XIAO [facility] 2022-02-03 2022-02-03 Outpatient [facility] [id number] Univers 09:50:00 09:50:00 KVNG ity [facility] 2022-01-20 2022-01-20 [facility] [id number] Univers 14:19:28 23:59:00 Encounter Rose Mary PRIMARY [id number] [id number] [id number] [place] bailee [address] [place] 2022-01-20 2022-01-20 Outpatient R [facility] [id number] Univers 14:19:28 23:59:00 ROSE MARY ity [facility] 2022-01-20 2022-01-20 Office [facility] [id number] Univers 14:00:00 15:14:44 Visit Rose Mary PRIMARY [id number] it [id number] [id number] [place] dicpriscilla [address] [place] 2022-01-20 2022-01-20 Outpatient R [facility] [id number] Univers 14:00:00 15:14:44 ROSE MARY ity of [facility] 2020-12-19 2020-12-19 Appointmen [place], [facility] UTP [id number] [place] 14:40:00 14:40:00 t; CO19, NURSE-COOLE P hysici NURSE-COOL Y ans EY 2020-12-17 2020-12-17 AppointMARK Gonzalez [facility] [id number] [place] 15:00:00 15:00:00 t; JASBIR BETANCOURT lty - P hylacy MARTELL M.D. [place] mart[place] M.D. 2020-10-15 2020-10-15 Appointlang BETANCOURT [facility] Multispecia [id number] [place] 15:20:00 15:20:00 t; JASBIR BETANCOURT lty - P [place] Reyes ans M.D. [address] 2020-08-16 2020-08-16 Appointmen [facility] Family [id number] [place] 14:45:00 14:45:00 t; DENIZ GARZA, SELENA [facility] 2020-06-07 2020-06-07 Appointlang BETANCOURT [facility] Multispecia [id number] [place] 14:20:00 14:20:00 t; JASBIR BETANCOURT lty - P [place] Reyesshalfredo martinez M.D. 2020-01-09 2020-01-09 Appointmen CLEMENT RUFFIN, [facility] Family [id number] [place] 16:00:00 16:00:00 t; SELENA RUFFIN Practice - Ph ysspencer VAUGHAN APRN [facility] 2019-11-21 2019-11-21 Appointmen MATT [facility] Multispecia 5 [id number] [place] 15:15:00 15:15:00 t; [place] RUBI lty - Phy lacy [facility] [place] RUBI 2019-10-18 2019-10-18 Appointlang GUTIERREZ [facility] Multispecia [id number] [place] 15:15:00 15:15:00 t; FLOR RUBI lty - [facility]i ci [facility] FLOR [address]BI [address] 2019-10-03 2019-10-03 [facility] UTP Multispecia 5 [id number] [place] 14:45:00 14:45:00 t; [place] RUBI lty - [facility]y lacy [facility] [place] RUBI [address] 2019-09-08 2019-09-08 Appointmen [facility] Multispecia [id number] [place] 14:45:00 14:45:00 t; ELROY LONG lty - Phys spencer ABBASI M.D. [place] michelle Eid 2019-08-30 2019-08-30 [facility] MATT, UTP Multispecia 5 [id number] [place] 14:30:00 14:30:00 t; FLOR RUBI lty - [facility]i ci [facility] FLOR RUBI 2019-08-16 2019-08-16 Outpatient MHSE MHSE [id number] 09:45:00 09:45:00 [facility] 2019-08-09 2019-08-09 [facility] MATT, UTP Multispecia [id number] [place] 16:00:00 16:00:00 t; FLOR RUBI lty - Physi ci [facility] FLOR [address]BI [address] 2019-08-08 2019-08-08 [facility] [id number] [place] 15:00:00 15:00:00 t; JASBIR BETANCOURT lty - P hysici MOHAMMAD, M.D. [place] michelle Eid 2019-07-11 2019-07-11 [facility] [id number] [place] 15:00:00 15:00:00 t; JASBIR BETANCOURT P hysici MOHAMMAD, M.D. ans M.D. 2019-06-02 2019-06-02 Appoint[facility] [id number] [place] 15:00:00 15:00:00 t; TENNILLE DUONG M.D. Practice - Physici TENNILLE [place] michelle Eid 2019-04-08 2019-04-08 Appoint[facility] [id number] [place] 15:00:00 15:00:00 t; TENNILLE DUONG M.D. Family Marge NULL, Adrian martinez M.D. 2019-01-10 2019-01-10 Appointmen [facility] [id number] [place] 15:00:00 15:00:00 t; JASBIR BETANCOURT Multi-Speci [place] [address] radha meredith M.D. 2018-12-16 2018-12-16 [facility] [id number] [place] 14:40:00 14:40:00 t; JASBIR BETANCOURT Multi-Speci [place] [address] radha meredith M.D. 2018-12-03 2018-12-03 [facility]AMCJ[facility] [id number] [place] 13:45:00 13:45:00 t; [place] ANGLIN [facility] michelle VIERA M.D. 2018-12-02 2018-12-02 [facility] NIKACodiUNC [facility] [id number] [place] 11:00:00 11:00:00 t; TENNILLE DUONG M.D. Family Marge NULL, Adrian martinez M.D. 2018-11-11 2018-11-11 [facility] [id number] [place] 11:00:00 11:00:00 t; ER, MARIA ESTHER, Phy sici DOSS-FOS FRANCESCO GoveaA, CHARTER COACH DRIVER 2018-08-31 2018-08-31 [facility] JOJOAnibalUNC [facility] [id number] [place] 14:00:00 14:00:00 t; JASBIR BETANCOURT Multi P sydni MARTELL M.D. Specialty michelle Eid 2018-08-25 2018-08-25 [facility] [id number] [place] 15:30:00 15:30:00 t; ER, MARIA ESTHER, Phy sici DOSS-FOS CHARTER COACH DRIVER michelle NO MARIA ESTHER, CHARTER COACH DRIVER 2018-08-25 2018-08-25 [facility] DOSS-[facility] [id number] [place] 15:30:00 15:30:00 t; ER, MARIA ESTHER, Family Phy sici DOSS-FOS CHARTER COACH DRIVER Practice ans TER MARIA ESTHER, CHARTER COACH DRIVER 2018-08-20 2018-08-20 [facility] [id number] [place] 08:00:00 08:00:00 t; , ECHO Multi Physic i [facility] Specialty ans S, ECHO 2018-08-17 2018-08-17 Appointmen [facility] [id number] [place] 15:40:00 15:40:00 t; JASBIR BETANCOURT, Multi P sydni MARTELL M.D. Specialty ans [place] 2018-08-16 2018-08-16 Appointmen CLEMENT [facility]FFINUNC [facility] [id number] [place] 15:30:00 15:30:00 t; RUFFIN, SENIOR PRODUCER Family Physi ci CLEMENT, SENIOR PRODUCER Practice ans 2018-08-13 2018-08-13 [facility] [id number] [place] 15:00:00 15:00:00 t; [place] ANGLIN hari VIERA [facility] Stanton ANGLIN 2018-08-09 2018-08-09 [facility] CAR[facility]INEUNC [facility] [id number] [place] 14:00:00 14:00:00 t; MAMADOU LOU, Family Phy sici Ce CEDILLO Practice ans D.ODestiny 2018-07-15 2018-07-15 [facility] 43 [id number] [place] 14:30:00 14:30:00 t; ER, MARIA ESTHER, Family Phy sici DOSS-FOS CHARTER COACH DRIVER Practice ans TERFRANCESCOA, CHARTER COACH DRIVER 2018-06-29 2018-06-29 [facility] [id number] [place] 12:00:00 12:00:00 t; [place] RUBI Multi-Speci Physici luz elena GUTIERREZ [address] an s [place] RUBI 2018-06-24 2018-06-24 [facility] [id number] [place] 16:00:00 16:00:00 t; [place] RUBI Multi-Speci Physici luz elena GUTIERREZ [address] an s [place] RUBI 2018-06-15 2018-06-15 [facility] [id number] [place] 15:00:00 15:00:00 t; [place] RUBI Multi Phy sici MATT, Specialty ans [place] RUBI 2018-06-08 2018-06-08 [facility] [id number] [place] 15:00:00 15:00:00 t; [place] RUBI Multi Phy sici MATT, Specialty ans [place] RUBI 2018-05-14 2018-05-14 [facility] [id number] [place] 15:30:00 15:30:00 t; MARIA ESTHER RUIZ Family Phy sici DOSS-FOS CHARTER COACH DRIVER Practice ans MARIA ESTHER NO CHARTER COACH DRIVER 2018-03-19 2018-03-19 [facility] 41 [id number] [place] 15:00:00 15:00:00 t; MARIA ESTHER RUIZ Family Phy sici DOSS-FOS CHARTER COACH DRIVER Practice ans MARIA ESTHER NO, CHARTER COACH DRIVER 2017-12-24 2017-12-24 [facility] [id number] [place] 15:00:00 15:00:00 t; TENNILLE DUONG M.D. Family Physici [place], Practice ans M.Jagdish 2017-12-23 2017-12-23 [facility] [id number] [place] 15:00:00 15:00:00 t; TENNILLE DUONG M.D. Family Physici [place], Practice ans M.Jagdish 2017-11-26 2017-11-26 Appointmen [facility] [id number] [place] 13:30:00 13:30:00 t; TENNILLE DUONG M.D. Family Physici [place], Practice ans M.Jagdish 2017-11-19 2017-11-19 Appointmen DOSS-FOST [facility] 37 [id number] [place] 14:30:00 14:30:00 t; ERMARIA ESTHER Family Phy sici DOSS-FOS CHARTER COACH DRIVER Practice ans MARIA ESTHER NO, CHARTER COACH DRIVER 2017-11-11 2017-11-11 Appointmen RERE, [facility] [id number] [place] 17:00:00 17:00:00 t; PADMAJA JERNIGANINE Ph ysici RACHEL ans 2017-10-21 2017-10-21 Appointmen DOSS-FO[facility] 36 [id number] [place] 16:30:00 16:30:00 t; ER, MARIA ESTHER, Family Phy sici DOSS-FOS CHARTER COACH DRIVER Practice ans TER, MARIA ESTHER, CHARTER COACH DRIVER 2017-10-13 2017-10-13 Appointmen [facility] [id number] [place] 16:00:00 16:00:00 t; RERE, RACHEL Family Ph ysici RACHEL Practice ans 2017-09-16 2017-09-16 Appointmen [facility] 35 [id number] [place] 13:00:00 13:00:00 t; ER, MARIA ESTHER, Family Phy sici DOSS-FOS CHARTER COACH DRIVER Practice ans TER, MARIA ESTHER, CHARTER COACH DRIVER 2017-08-27 2017-08-27 Appointmen [facility] 35 [id number] [place] 08:30:00 08:30:00 t; ER, MARIA ESTHER, Family Phy sici DOSS-FOS CHARTER COACH DRIVER Practice ans TER, MARIA ESTHER, CHARTER COACH DRIVER 2017-08-26 2017-08-26 Appointmen AD [facility] [id number] [place] 15:00:00 15:00:00 t; TENNILLE DUONG M.D. Physici BEENA, ans M.D. 2017-06-29 2017-06-29 Appointmen AD [facility] UTP [id number] [place] 14:00:00 14:00:00 t; TENNILLE DUONG M.D. Physici BEENA, ans M.D. 2017-06-18 2017-06-18 Appointmen [facility] 33 [id number] [place] 14:00:00 14:00:00 t; ER, MARIA ESTHER, Family Phy sici DOSS-FOS CHARTER COACH DRIVER Practice ans TER, MARIA ESTHER, CHARTER COACH DRIVER 2017-05-27 2017-05-27 Appointmen MARK DUONG [facility] [id number] [place] 15:00:00 15:00:00 t; TENNILLE DUONG M.D. Physici BEENA, ans M.D. 2017-03-09 2017-03-09 [facility] NEGRITO, [facility] UTP [id number] [place] 16:00:00 16:00:00 t; Anupam ZAPATA i, M.D. ans HUBERT, M.D. 2017-02-13 2017-02-13 [facility] NEGRITO, [facility] UTP [id number] [place] 15:30:00 15:30:00 t; Anupam ZAPATA i, M.D. ans HUBERT, M.D. 2017-01-28 2017-01-28 [facility] PILLAI, [facility] UTP [id number] [place] 15:30:00 15:30:00 t; Stanton CALDERON ans JOHN, M.D. 2016-12-16 2016-12-16 [facility] JOJOAnibal, [facility] UTP [id number] [place] 15:30:00 15:30:00 t; JASBIR BETANCOURT P hysici MOHAMMAD, M.D. ans M.D. 2016-12-16 2016-12-16 [facility] UTP [id number] [place] 15:00:00 15:00:00 t; , STRESS Physi [facility] michelle S, STRESS 2016-11-27 2016-11-27 [facility] ASIA, [facility] UTP [id number] [place] 14:00:00 14:00:00 t; JASBIR BETANCOURT P hysici MOHAMMAD, M.D. ans M.D. 2016-11-24 2016-11-24 [facility] AD, MARK UTP [id number] [place] 15:00:00 15:00:00 t; TENNILLE DUONG M.D. Physici BEENA, ans M.D. 2016-11-14 2016-11-14 [facility] MARK DUONG UTP [id number] [place] 14:30:00 14:30:00 t; TENNILLE DUONG M.D. Physici BEENA, ans M.D. 2016-10-29 2016-10-29 [facility] ROSAS, MARK UTP [id number] [place] 15:00:00 15:00:00 t; Stanton CALDERON ans JOHN, M.D. 2016-10-23 2016-10-23 [facility] AD [facility] UTP [id number] [place] 15:00:00 15:00:00 t; TENNILLE DUONG M.D. Physici BEENA, ans M.D. 2016-09-22 2016-09-22 Appointlang NIKACodi [facility] UTP [id number] [place] 10:00:00 10:00:00 t; TENNILLE DUONG M.D. Physici BEENA, ans M.D. Results Test Description Test Time Test Comments Results Result Comments Source [QL] BASIC METABOLIC PANEL W/EGFR 2020-12-12 12:19:00 Test Item Value Reference Range Interpretation Comme nts GLUCOSE; Normal (test 89 mg/dl 65-99 N Fastin g reference interval code = 1547-9) UREA NITROGEN (BUN) (test 11 mg/dl 7-25 N code = UREA NITROGEN (BUN)) CREATININE (test code = 0.73 mg/dl 0.50-0.99 N For patients >49 years of age, CREATININE) the reference l imitfor Creatinine is a pproximately 13% higher for peopleidentifie d as -Claudia n. eGFR NON-AFR. DOMINICAN 84 {ML/MIN/1.7} See_Comment N [ Automated message] The (test code = eGFR system whi ch generated this NON-AFR. DOMINICAN) result tr ansmitted reference range: > OR = 6 0. The reference range was not used to interpret th is result as normal/abnormal . eGFR 97 {ML/MIN/1.7} See_Comment N [A utomated message] The (test code = eGFR sy stem which generated this DOMINICAN) result transmit won reference range: > OR = 6 0. The reference range was not used to interpret th is result as normal/abnormal . BUN/CREATININE RATIO NOT APPLICABLE 05-07 (test code = BUN/CREATININE RATIO) SODIUM (test code = 134 mmol/L 135-146 SODIUM) POTASSIUM (test code = 3.6 mmol/L 3.5-5.3 N POTASSIUM) CHLORIDE (test code = 93 mmol/L 98-110 CHLORIDE) CARBON DIOXIDE (test code 34 mmol/L 20-32 = CARBON DIOXIDE) CALCIUM (test code = 9.5 mg/dl 8.6-10.4 N CALCIUM) [facility][Q] LIPID PANEL WITH REFLEX TO DIRECT [id number] 12:44:00 Test Item Value Reference Range Interpretation Comments CHOLESTEROL, TOTAL; 241 mg/dl <200 Above High Threshold (test code = 3-3) HDL CHOLESTEROL; 65 mg/dl > OR = 50 N Normal (test code = 5-9) TRIGLYCERIDES; 64 mg/dl <150 N Normal (test code = 2571-8) LDL-CHOLESTEROL; 160 {MG/DL Reference r [place]: Above High Threshold ARGELIA} <100 De sirable range (test code = <100 mg/[place] [address]-0) primary prevent ion; <70 mg/dL for patients with C HD or diabetic patien ts with > or = 2 C HD risk factors. L DL-C is now calculat ed using the Gilma calculation, wh ich is a validated novel method providin g better accuracy than the Friedewald equation in the estimation of L DL-C. Nelson SS et al . ADELINA. 2013;310( 19): 1354-3031 (http://educati on.Pyreos. com/f aq/BRF854) CHOL/HDLC RATIO 3.7 {CALC} <5.0 N (test code = CHOL/HDLC RATIO) NON HDL CHOLESTEROL 176 {MG/DL <130 For marcelina ents with (test code = NON HDL ARGELIA} diabete s plus 1 CHOLESTEROL) major ASCVD ris k factor, treatin g to a non-HDL-C goa l of <100 mg/dL (LDL -C of <70 mg/dL) is considered a therapeutic opt ion. [facility][QL] CMP [id number] 12:44:00 Test Item Value Reference Range Interpretation Comments GLUCOSE; Normal 90 mg/dl 65-99 N Fasting refe rence (test code = interval 1547-9) UREA NITROGEN 8 mg/dl 7-25 N (BUN) (test code = UREA NITROGEN (BUN)) CREATININE (test 0.67 mg/dl 0.50-0.99 N For patient s >49 years code = of age, the ref erence CREATININE) limitfor Creati nine is approximately 1 3% higher for peopleidentifie d as -Claudia n. eGFR NON-AFR. 90 {ML/MIN/1.7} > OR = 60 N DOMINICAN (test code = eGFR NON-AFR. DOMINICAN) eGFR 105 {ML/MIN/1.7} > OR = 60 N DOMINICAN (test code = eGFR ) BUN/CREATININE NOT APPLICABLE 6-22 RATIO (test code = BUN/CREATININE RATIO) SODIUM (test code 137 mmol/L 135-146 N = SODIUM) POTASSIUM (test 4.2 mmol/L 3.5-5.3 N code = POTASSIUM) CHLORIDE (test 104 mmol/L 98-110 N code = CHLORIDE) CARBON DIOXIDE 28 mmol/L 20-32 N (test code = CARBON DIOXIDE) CALCIUM (test 8.9 mg/dl 8.6-10.4 N code = CALCIUM) PROTEIN, TOTAL 6.6 g/dl 6.1-8.1 N (test code = PROTEIN, TOTAL) ALBUMIN (test 3.9 g/dl 3.6-5.1 N code = ALBUMIN) GLOBULIN (test 2.7 {G/DL CALC} 1.9-3.7 N code = GLOBULIN) ALBUMIN/GLOBULIN 1.4 {CALC} 1.0-2.5 N RATIO (test code = ALBUMIN/GLOBULIN RATIO) BILIRUBIN, TOTAL; 0.8 mg/dl 0.2-1.2 N Normal (test code = 20918-7) ALKALINE 113 u/l 37-153 N PHOSPHATASE (test code = ALKALINE PHOSPHATASE) AST; Normal (test 22 u/l 10-35 N code = 1916-6) ALT; Normal (test 16 u/l 6-29 N code = 1742-6) [facility][O] Streptococcus Test Rapid (In Office)2020-01-09 16:09:00 Test Item Value Reference Range Interpretation Comments Group A Strep Screen; Abnormal (test positive A code = 38460-8) [facility][QLH] FECAL LEUKOCYTE [id number] 15:31:00 Test Item Value Reference Range Interpretation Comments LEUKOCYTES (test code See Comment FECAL LEUKOCYTE = LEUKOCYTES) STAIN Micro Nu mber: [id number] Test Status: Final Specimen Source : STOOL Specimen Quality: Adequa te Fecal Leukocyte : Not Detected [facility][Q] CULTURE, STOOL, HAILEY/SHIG/CAMPY AND SHIGA TOXINS EIA W/RFL E.COLI O157 [id number] 15:31:00 Test Item Value Reference Range Interpretation Comments CULTURE (test code = See Comment SALMONE LLA AND CULTURE) SHIGELLA, CULTU RE Micro Number: [id number] Test Status: Fi nal Specimen Source : STOOL Specimen Qualit y: Adequate Result : No Salmonella or S higella isolated EIA (test code = See Comment SHIGA TOXIN S, EIA EIA) W/RFL TO E.COLI O157 CULTURE Micro N umber: [id number] Test S tatus: Final Specimen Source: STOOL Specimen Quality: Adequa te Shiga Toxin: No t Detected [facility][Q] Clostridium difficile Toxin/GDH with reflex to [id number] 15:31:00 Test Item Value Reference Range Interpretation Comments Clostridium Difficile See Comment CLOSTR IDIUM DIFFICILE Toxin/GDH w/Refl to TOXIN/GD H W/REFL TO PCR (test code = PCR Micro N umber: Clostridium Difficile [id number] Test Status: Toxin/GDH w/Refl to Final Sp ecimen PCR) Source: STOOL Specimen Qualit y: Adequate GDH An tigen: Not Detected To nola A and B: Not Dete cted COMMENT: No tox igenic C. difficile de tected For additional information, pl ease refer to http://educatio n.Ques tDiagnostics.co m/faq/ QMU201 (This li nk is being provided for informational/e ducati onal purposes o nly.) [facility][QL] CALPROTECTIN, [id number] 15:31:00 Test Item Value Reference Range Interpretation Comments CALPROTECTIN, 34.7 {mcg/g} <15.625 - 50 m cg/g STOOL (test Normal>50 - 120 mcg/g code = Borderline>120 mcg/g CALPROTECTIN, Abnormal Calpr otectin in STOOL) Crohn's disease and ulcerative coli tis canbe five to several thousand times above the referencepopula tion (50 mcg/g or less). Levels are usually 50 mcg/ gor less in healthy patient s and with irritable bowel syndrome. Repeat testing in 4-6 weeks is suggested fo rborderline values. [facility] Abdomen/Pelvis w/wo contrast [id number] 11:55:00EXAM: CT ABDOMEN AND PELVIS WITHOUT AND WITH CONTRASTDATE: 08/15/2019 11:55 CDTINDICATION: - R10.9 Unspecified abdominal painCOMPARISON: None.TECHNIQUE: Volumetric CT acquisition of the abdomen and pelvis before and afterthe intravenous administration contrast. Axial, coronal and sagittalreconstructions. A 5 minute delayed sequence was obtained.IV contrast: 100 mL Omnipaque 300Oral contrast: Dilute OmnipaqueDLP: 875.27 mGy-cmFINDINGS:Lines and tubes: NoneLiver: A punctate calcification is present just under the hemidiaphragm andsegment 8 of the liver on image 17 of series 4.Biliary tree: Minimal prominence of the intrahepatic collecting system likelyrelated to prior cholecystectomy.Gallbladder: Prior cholecystectomyPancreas: Normal.Spleen: Normal.Adrenals: Normal.Kidneys and ureters: Normal.Bladder: Normal.Reproductive organs: Status post hysterectomy. No abnormal mass is present.Gastrointestinal tract:A small hiatal hernia is present.Small bowel loops are normal in appearance.The colon is normal with no mass, inflammatory change or dilatation.Appendix: NormalPeritoneum and retroperitoneum: No ascites or free air. No other fluidcollection.Lymph nodes: Normal.Vasculature: Normal.Bones: Normal.Lower thorax: Scattered linear densities in both lung bases suggest areas offibrosis or platelike atelectasis. No focal airspace disease is present, andthere are no pleural effusions.Soft tissues: Normal.IMPRESSION:1. A calcified granulomas present in the right lobe of liver just under thehemidiaphragm.2. Mild prominence of biliary collecting system likely reflects priorcholecystectomy and likely is ofno clinical significance.3. Linear densities in the lung bases likely represent areas of fibrosis.--Read by: Elroy Pemberton MDDictated Date/time: 08/15/19 13:51Electronically Signed by: Elroy Pemberton MD 08/15/1914:00FINAL REPORTUT [facility]icians[QH] LIPID PANEL WITH REFLEX TO DIRECT [id number] 11:19:00 Test Item Value Reference Range Interpretation Comments CHOLESTEROL, TOTAL; 224 mg/dl <200 Above High Threshold (test code = 2093-3) HDL CHOLESTEROL; 68 mg/dl >50 N Normal (test code = 2085-9) TRIGLYCERIDES; 79 mg/dl <150 N Normal (test code = 2571-8) LDL-CHOLESTEROL; 138 {MG/DL Reference r [place]: Above High Threshold ARGELIA} <100 De sirable range (test code = <100 mg/[place] [address]-3) primary prevent ion; <70 mg/dL for patients with C HD or diabetic patien ts with > or = 2 C HD risk factors. L DL-C is now calculat ed using the Gilma calculation, wh ich is a validated novel method providin g better accuracy than the Friedewald equation in the estimation of L DL-C. Nelson SS et al . ADELINA. 2013;310( 06): 1479-5264 (http://educati on.Pyreos. [employer]/f aq/TFR304) CHOL/HDLC RATIO 3.3 {CALC} <5.0 N (test code = CHOL/HDLC RATIO) NON HDL CHOLESTEROL 156 {MG/DL <130 For marcelina ents with (test code = NON HDL ARGELIA} diabete s plus 1 CHOLESTEROL) major ASCVD ris k factor, treatin g to a non-HDL-C goa l of <100 mg/dL (LDL -C of <70 mg/dL) is considered a therapeutic opt ion. [facility]] HEPATIC FUNCTION [id number] 11:19:00 Test Item Value Reference Range Interpretation Comments PROTEIN, TOTAL (test code = 6.4 g/dl 6.1-8.1 N PROTEIN, TOTAL) ALBUMIN (test code = ALBUMIN) 4.0 g/dl 3.6-5.1 N GLOBULIN (test code = 2.4 {G/DL CALC} 1.9-3.7 N GLOBULIN) ALBUMIN/GLOBULIN RATIO (test 1.7 {CALC} 1.0-2.5 N code = ALBUMIN/GLOBULIN RATIO) BILIRUBIN, DIRECT; Normal 0.2 mg/dl < OR = 0.2 N (test code = 63125-4) BILIRUBIN, INDIRECT; Normal 0.6 {MG/DL ARGELIA} 0.2-1.2 N (test code = 1971-1) ALKALINE PHSPHATASE (test 74 u/l 33-130 N code = ALKALINE PHSPHATASE) AST; Normal (test code = 20 u/l 10-35 N 1916-6) ALT; Normal (test code = 24 u/l 6-29 N 1742-6) [place] [facility]INALYSIS [id number] 21:01:00 Test Item Value Reference Range Interpretation Comments UA COLOR (test code = COLU) STRAW YEL/STRAW UA APPEARANCE (test code = CLEAR CLEAR APPU) UA GLUCOSE DIPSTICK (test code NEGATIVE NEGATIVE = DGLUU) UA BILIRUBIN DIPSTICK (test NEGATIVE NEGATIVE code = BILU) UA KETONE DIPSTICK (test code NEGATIVE NEGATIVE = KETU) UA SPECIFIC GRAVITY (test code 1.003 1.005-1.030 L = SGU) UA BLOOD DIPSTICK (test code = NEGATIVE NEGATIVE KAMINI) UA PH DIPSTICK (test code = 6.0 5.0-7.0 N CHERYLE) UA PROTEIN DIPSTICK (test code NEGATIVE NEGATIVE = PROU) UA UROBILINIOGEN DIPSTICK 0.2 mg/dL 0.2-1.0 (test code = URO) UA NITRITE DIPSTICK (test code NEGATIVE NEGATIVE = PAULA) UA LEUKOCYTE ESTERASE DIPSTICK NEGATIVE NEGATIVE (test code = LEUU) UA RBC (test code = RBCU) 0-3 RBC/HPF 0-3 UA WBC NO REFLEX (test code = 0-3 WBC/HPF 0-3 WBCUCL) UA BACTERIA (test code = BACU) NONE SEEN /HPF NONE SEEN UA SQUAMOUS CELLS (test code = 0-5 /HPF NONE SEEN SQU) UA MUCUS (test code = MUCU) TRACE /LPF NONE SEEN BASIC METABOLIC [id number] 20:52:00 Test Item Value Reference Range Interpretation Comments SODIUM (test code = NA) 137 mEq/L 134-147 N POTASSIUM (test code = 4.5 mEq/L 3.4-5.0 N K) CHLORIDE (test code = 103 mEq/L 100-108 N CL) CARBON DIOXIDE (test 30 mEq/L 21-33 N code = CO2) ANION GAP (test code = 9 0-20 N GAP) GLUCOSE (test code = 106 mg/dL 70-110 N GLU) BLOOD UREA NITROGEN 12 mg/dL 7-18 N (test code = BUN) GLOMERULAR FILTRATION 71.5 80-90 L Units of measure = RATE (test code = GFR) ml/mi n/1.73 m2 CREATININE (test code = 0.8 mg/dL 0.6-1.3 N CREAT) CALCIUM (test code = 9.0 mg/dL 8.0-10.5 N CA) HEPATIC FUNCTION [id number] 20:52:00 Test Item Value Reference Range Interpretation Comments TOTAL PROTEIN (test code = PROT) 7.2 g/dL 6.4-8.2 N ALBUMIN (test code = ALB) 3.60 g/dL 3.4-5.0 N BILIRUBIN TOTAL (test code = 0.50 mg/dL 0.0-1.0 N BILT) BILIRUBIN DIRECT (test code = < 0.10 MG/DL 0.0-0.30 N BILD) BILIRUBIN INDIRECT (test code = 0.40 MG/DL BILIND) SGOT/AST (test code = AST) 31 IUnit/L 15-37 N SGPT/ALT (test code = ALT) 31 IUnit/L 15-65 N ALKALINE PHOSPHATASE TOTAL (test 80 IUnit/L 20-125 N code = ALKP) [id number] 20:52:00 Test Item Value Reference Range Interpretation Comments LIPASE (test code = LIP) 212 IUnit/L 73-393 N BASIC METABOLIC [id number] 20:45:00 Test Item Value Reference Range Interpretation Comments SODIUM (test code = NA) 137 mEq/L 134-147 N POTASSIUM (test code = K) 4.5 mEq/L 3.4-5.0 N CHLORIDE (test code = CL) 103 mEq/L 100-108 N CARBON DIOXIDE (test code = CO2) 30 mEq/L 21-33 N ANION GAP (test code = GAP) 9 0-20 N GLUCOSE (test code = GLU) 106 mg/dL 70-110 N BLOOD UREA NITROGEN (test code = 12 mg/dL 7-18 N BUN) GLOMERULAR FILTRATION RATE (test 80-90 code = GFR) CREATININE (test code = CREAT) mg/dL 0.6-1.3 CALCIUM (test code = CA) 9.0 mg/dL 8.0-10.5 N HEPATIC FUNCTION [id number] 20:45:00 Test Item Value Reference Range Interpretation Comments TOTAL PROTEIN (test code = PROT) g/dL 6.4-8.2 ALBUMIN (test code = ALB) g/dL 3.4-5.0 BILIRUBIN TOTAL (test code = BILT) mg/dL 0.0-1.0 BILIRUBIN DIRECT (test code = BILD) MG/DL 0.0-0.30 SGOT/AST (test code = AST) IUnit/L 15-37 SGPT/ALT (test code = ALT) IUnit/L 15-65 ALKALINE PHOSPHATASE TOTAL (test IUnit/L 20-125 code = ALKP) [id number] 20:45:00 Test Item Value Reference Range Interpretation Comments LIPASE (test code = LIP) 212 IUnit/L 73-393 N CBC W/AUTO [id number] 20:32:00 Test Item Value Reference Range Interpretation Comments WHITE BLOOD CELL (test code = 6.93 x10 3/uL 4.5-11.0 N WBC) RED BLOOD CELL (test code = 4.43 x10 6/uL 3.54-5.02 N RBC) HEMOGLOBIN (test code = HGB) 13.3 g/dL 11.0-15.0 N HEMATOCRIT (test code = HCT) 39.5 % 33.0-45.0 N MEAN CELL VOLUME (test code = 89.2 fL 81.0-99.0 N MCV) MEAN CELL HGB (test code = MCH) 30.0 pg 27.0-33.0 N MEAN CELL HGB CONCETRATION 33.7 g/dL 33.0-37.0 N (test code = MCHC) RED CELL DISTRIBUTION WIDTH CV 13.6 % 11.5-14.5 N (test code = RDW) RED CELL DISTRIBUTION WIDTH SD 43.9 fL 37.0-54.0 N (test code = RDW-SD) PLATELET COUNT (test code = 312 x10 3/uL 150-400 N PLT) MEAN PLATELET VOLUME (test code 9.2 fL 7.0-9.0 H = MPV) NEUTROPHIL % (test code = NT%) 52.2 % 56.0-77.0 L IMMATURE GRANULOCYTE % (test 0.1 % 0.0-2.0 N code = IG%) LYMPHOCYTE % (test code = LY%) 40.3 % 14.0-32.0 H MONOCYTE % (test code = MO%) 6.6 % 4.8-9.0 N EOSINOPHIL % (test code = EO%) 0.4 % 0.3-3.7 N BASOPHIL % (test code = BA%) 0.4 % 0.0-2.0 N NUCLEATED RBC % (test code = 0.0 % 0-0 N NRBC%) NEUTROPHIL # (test code = NT#) 3.61 x10 3/uL 2.0-7.6 N IMMATURE GRANULOCYTE # (test 0.01 x10 3/uL 0.00-0.03 N code = IG#) LYMPHOCYTE # (test code = LY#) 2.79 x10 3/uL 1.0-3.8 N MONOCYTE # (test code = MO#) 0.46 x10 3/uL 0.1-0.8 N EOSINOPHIL # (test code = EO#) 0.03 x10 3/uL 0.0-0.2 N BASOPHIL # (test code = BA#) 0.03 x10 3/uL 0.0-0.2 N NUCLEATED RBC # (test code = 0.00 x10 3/uL 0.0-0.1 N NRBC#) MANUAL DIFF REQUIRED (test code NO = MDIFF) [Q] CULTURE, STOOL, HAILEY/SHIG/CAMPY AND SHIGA TOXINS EIA W/RFL E.COLI O157 CULT 2019-04-18 15:09:00 Test Item Value Reference Range Interpretation Comments EIA (test code = See Comment SHIGA TOXIN S, EIA EIA) W/RFL TO E.COLI O157 CULTURE MICRO N UMBER: [id number] TEST S TATUS: FINAL SPECIMEN SOURCE: STOOL SPECIMEN QUALITY: ADEQUA TE RESULT: Not Det ected CULTURE (test code = See Comment SALMONE LLA AND CULTURE) SHIGELLA, CULTU RE MICRO NUMBER: [id number] TEST STATUS: FI NAL SPECIMEN SOURCE : STOOL SPECIMEN QUALIT Y: ADEQUATE RESULT : No Salmonella or S higella isolated [facility] Liver [id number] 13:25:00EXAM: US ABDOMEN LIMITEDDATE: 04/18/2019INDICATION: - R74.8 Abnormal levels of other serum enzymesADDITIONAL INFORMATION: None.COMPARISON: None.TECHNIQUE: Multiplanar grayscale and color Doppler ultrasound of the rightupper quadrant.FINDINGS:Liver: Craniocaudal length: 12.5 cm. Normal. Echogenicity: Normal. Surface nodularity: None. Mass (size and location): None.Portal vein: Normal.Bile ducts: Common bile duct diameter: 0.6 cm. Normal. Intrahepatic ducts: Normal.Gallbladder: RemovedPancreas: Head anduncinate process: Normal. Body and tail: Not seen.Right kidney: Hydronephrosis: None. Size: 9.5 x 3.9 x 4.6 cm. Normal. Echogenicity: Normal. Mass/Stone/Cyst (size and location): None.Ascites: None.IMPRESSION:1. No abdominal abnormalities.2. Status post cholecystectomy.--Read by: Erica Lui MDDictated Date/time: 04/18/19 13:56Electronically Signed by: Erica Lui MD 04/18/1914:02FINAL REPORTUT PhysiciansGU Abdomen AP view [id number] 14:01:00EXAM: XR ABDOMEN 1 VIEWDATE: 04/15/2019 14:01 CDTINDICATION: - K52.9 Noninfective gastroenteritis andcolitis, unspecifiedCOMPARISON: None.TECHNIQUE: AP view of the abdomen.FINDINGS: Lines, tubes and hardware: Surgical clips in the right upper quadrant.Lower thorax: Unremarkable where visible.Abdomen and bowel: Unremarkable. Nonobstructive bowel gas pattern.Calcifications: No nephroliths are identified. Small nonspecific calcificationprojecting over the right iliac wing.Bones and soft tissues: No acute abnormality. Mild rightward curvature of thelumbar spine.IMPRESSION:No acute abdominal abnormality.--Read by: Kaylynn Varma MDDictated Date/time: 04/15/19 15:37Electronically Signed by: Kaylynn Varma MD 04/15/1915:39FINAL REPORTUT [facility][Q] OVA AND PARASITES, STOOL CONC/PERM SMEAR, 2 [id number] 13:20:00 Test Item Value Reference Range Interpretation Comments OVA AND See Comment OVA AND PARASIT ES, PARASITES, STOOL CONC/PERM S MEAR, 2 SPEC CONC AND PERM MICRO NUMBER: [id number] SMEAR (test code TEST STATUS : FINAL = OVA AND SPECIMEN SOURCE : STOOL PARASITES, STOOL SPECIMEN QU ALITY: CONC AND PERM ADEQUATE ALICIA NTRATION 1: SMEAR) No ova or kaur ites seen TRICHROME 1: No ova or parasites seen CONCENTRATION 2 : No ova or parasites se en TRICHROME 2: No ova or parasites seen Routine Ova and Parasit e exam may not detect some parasites that occasional ly cause diarrheal illn ess. Test code(s) 61434 (Cryptosporidiu m Ag., DFA) and/or 100 18 (Cyclospora and Isospora Exam) may be or dered to detect these pa rasites. For additional information, pl ease refer to https://educati on.[employer]/f aq/RSQ489 (This link is b eing provided for informational/ educational pur poses only.) [facility][Q] Clostridium difficile Toxin/GDH with reflex to [id number] 13:20:00 Test Item Value Reference Range Interpretation Comments Clostridium Difficile See Comment CLOSTR IDIUM DIFFICILE Toxin/GDH w/Refl to TOXIN/GD H W/REFL TO PCR (test code = PCR MICRO N UMBER: Clostridium Difficile [id number] TEST STATUS: Toxin/GDH w/Refl to FINAL SP ECIMEN PCR) SOURCE: STOOL SPECIMEN QUALIT Y: ADEQUATE GDH AN TIGEN: Not Detected TO [place] A AND B: Not Dete cted COMMENT: No tox igenic C. difficile de tected For additional information, pl ease refer to http://educatio n.Ques tDiagnostics.co m/faq/ KKM612 (This li nk is being provided for informational/e ducati onal purposes o nly.) [facility]] FECAL LEUKOCYTE [id number] 13:20:00 Test Item Value Reference Range Interpretation Comments LEUKOCYTES (test code See Comment FECAL LEUKOCYTE = LEUKOCYTES) STAIN MICRO NU MBER: [id number] TEST STATUS: FINAL SPECIMEN SOURCE : STOOL SPECIMEN QUALITY: ADEQUA TE FECAL LEUKOCYTE : Not Detected [facility][QL[facility]] [id number] 15:54:00 Test Item Value Reference Range Interpretation Comments MAGNESIUM (test code = MAGNESIUM) 2.0 mg/dl 1.5-2.5 N [facility]] PHOSPHATE ( PHOSPHORUS)2019-04-12 15:54:00 Test Item Value Reference Range Interpretation Comments PHOSPHATE ( PHOSPHORUS) (test 4.0 mg/dl 2.1-4.3 N code = PHOSPHATE ( PHOSPHORUS)) [facility][QL] CMP [id number] 15:54:00 Test Item Value Reference Range Interpretation Comments GLUCOSE; Above 100 mg/dl 65-99 Fasting refer ence High Threshold interval For someone (test code = without known 1547-9) diabetes, a glu cose valuebetween 10 0 and 125 mg/dL is consistent withprediabetes and should be confi rmed with afollow-up test. UREA NITROGEN 8 mg/dl 7-25 N (BUN) (test code = UREA NITROGEN (BUN)) CREATININE (test 0.66 mg/dl 0.50-0.99 N For patient s >49 years code = of age, the ref erence CREATININE) limitfor Creati nine is approximately 1 3% higher for peopleidentifie d as -Claudia n. eGFR NON- 91 {ML/MIN/1.7} > OR = 60 N DOMINICAN (test code = eGFR NON-) eGFR 106 {ML/MIN/1.7} > OR = 60 N DOMINICAN (test code = eGFR ) BUN/CREATININE NOT APPLICABLE 6-22 RATIO (test code = BUN/CREATININE RATIO) SODIUM (test code 138 mmol/L 135-146 N = SODIUM) POTASSIUM (test 3.7 mmol/L 3.5-5.3 N code = POTASSIUM) CHLORIDE (test 101 mmol/L 98-110 N code = CHLORIDE) CARBON DIOXIDE 28 mmol/L 20-32 N (test code = CARBON DIOXIDE) CALCIUM (test 8.8 mg/dl 8.6-10.4 N code = CALCIUM) PROTEIN, TOTAL 6.6 g/dl 6.1-8.1 N (test code = PROTEIN, TOTAL) ALBUMIN (test 3.9 g/dl 3.6-5.1 N code = ALBUMIN) GLOBULIN (test 2.7 {G/DL CALC} 1.9-3.7 N code = GLOBULIN) ALBUMIN/GLOBULIN 1.4 {CALC} 1.0-2.5 N RATIO (test code = ALBUMIN/GLOBULIN RATIO) BILIRUBIN, TOTAL; 1.1 mg/dl 0.2-1.2 N Normal (test code = 17976-9) ALKALINE 156 u/l 33-130 PHSPHATASE (test code = ALKALINE PHSPHATASE) AST; Above High 58 u/l 10-35 Threshold (test code = 1916-6) ALT; Above High 51 u/l 6-29 Threshold (test code = 1742-6) [facility]] CBC (INCLUDES DIFF/PLT)2019-04-12 15:54:00 Test Item Value Reference Range Interpretation Comments WHITE BLOOD CELL COUNT 4.7 {Thousand/u} 3.8-10.8 N (test code = WHITE BLOOD CELL COUNT) RED BLOOD CELL COUNT (test 4.54 {Million/uL} 3.80-5.10 N code = RED BLOOD CELL COUNT) HEMAGLOBIN; Normal (test 13.7 g/dl 11.7-15.5 N code = 90917-7) HEMATOCRIT; Normal (test 39.4 % 35.0-45.0 N code = 4544-3) MCV; Normal (test code = 86.8 fL 80.0-100.0 N 787-2) MCHC; Normal (test code = 34.8 g/dl 32.0-36.0 N 24869-2) RDW; Normal (test code = 13.0 % 11.0-15.0 N 788-0) PLATELET COUNT; Normal 282 {Thousand/u} 140-400 N (test code = 777-3) MPV; Normal (test code = 9.5 fL 7.5-12.5 N 39480-2) ABSOLUTE NEUTROPHILS (test 1584 {cells/uL} 4978-4644 N code = ABSOLUTE NEUTROPHILS) ABSOLUTE LYMPHOCYTES (test 2731 {cells/uL} 850-3900 N code = ABSOLUTE LYMPHOCYTES) ABSOLUTE MONOCYTES (test 348 {cells/uL} 200-950 N code = ABSOLUTE MONOCYTES) ABSOLUTE EOSINOPHILS (test 19 {cells/uL} 15-500 N code = ABSOLUTE EOSINOPHILS) ABSOLUTE BASOPHILS (test 19 {cells/uL} 0-200 N code = ABSOLUTE BASOPHILS) NEUTROPHILS (test code = 33.7 % N NEUTROPHILS) LYMPHOCYTES (test code = 58.1 % N LYMPHOCYTES) MONOCYTES; Normal (test 7.4 % N code = 72659-8) EOSINOPHILS; Normal (test 0.4 % N code = 30284-6) BASOPHILS; Normal (test 0.4 % N code = 27346-3) [facility]] TSH, 3RD GENERATION W/REFLEX TO [id number] 15:54:00 Test Item Value Reference Range Interpretation Comments TSH, 3RD GENERATION W/REFLEX TO 1.18 {MIU/L} 0.40-4.50 N FT4 (test code = TSH, 3RD GENERATION W/REFLEX TO FT4) [facility]] LIPID PANEL WITH REFLEX TO DIRECT [id number] 12:13:00 Test Item Value Reference Range Interpretation Comments CHOLESTEROL, TOTAL; 199 mg/dl <200 N Normal (test code = 3-3) HDL CHOLESTEROL; 77 mg/dl >50 N Normal (test code = 5-9) TRIGLYCERIDES; 88 mg/dl <150 N Normal (test code = 2571-8) LDL-CHOLESTEROL; 104 {MG/DL Reference r [place]: Above High Threshold ARGELIA} <100 De sirable range (test code = <100 mg/[place] [address]-5) primary prevent ion; <70 mg/dL for patients with C HD or diabetic patien ts with > or = 2 C HD risk factors. L DL-C is now calculat ed using the Gilma calculation, wh ich is a validated novel method providin g better accuracy than the Friedewald equation in the estimation of L DL-C. Nelson SS et al . ADELINA. 2013;310( 19): 1184-1359 (http://educati on.Pyre[employer]. com/f [email or web address]/[email or web address]) CHOL/HDLC RATIO 2.6 {CALC} <5.0 N (test code = CHOL/HDLC RATIO) NON HDL CHOLESTEROL 122 {MG/DL <130 N For [place] ents with (test code = NON HDL ARGELIA} diabete s plus 1 CHOLESTEROL) major ASCVD ris k factor, treatin g to a non-HDL-C goa l of <100 mg/dL (LDL -C of <70 mg/dL) is considered a therapeutic opt ion. [facility]] HEPATIC FUNCTION [id number] 12:13:00 Test Item Value Reference Range Interpretation Comments PROTEIN, TOTAL (test code = 6.7 g/dl 6.1-8.1 N PROTEIN, TOTAL) ALBUMIN (test code = ALBUMIN) 4.1 g/dl 3.6-5.1 N GLOBULIN (test code = 2.6 {G/DL CALC} 1.9-3.7 N GLOBULIN) ALBUMIN/GLOBULIN RATIO (test 1.6 {CALC} 1.0-2.5 N code = ALBUMIN/GLOBULIN RATIO) BILIRUBIN, DIRECT; Normal 0.1 mg/dl < OR = 0.2 N (test code = 61328-4) BILIRUBIN, INDIRECT; Normal 0.5 {MG/DL ARGELIA} 0.2-1.2 N (test code = 1970-) ALKALINE PHSPHATASE (test 213 u/l 33-130 code = ALKALINE PHSPHATASE) AST; Normal (test code = 32 u/l 10-35 N 1916-6) ALT; Above High Threshold 39 u/l 6-29 (test code = 1742-6) [facility]] LIPID PANEL WITH REFLEX TO DIRECT [id number] 15:10:00 Test Item Value Reference Range Interpretation Comments CHOLESTEROL, TOTAL; 267 mg/dl <200 Above High Threshold (test code = 3-3) HDL CHOLESTEROL; 86 mg/dl >50 N Normal (test code = 5-9) TRIGLYCERIDES; 77 mg/dl <150 N Normal (test code = 2571-8) LDL-CHOLESTEROL; 163 {MG/DL Reference r [place]: Above High Threshold ARGELIA} <100 De sirable range (test code = <100 mg/[place] [address]-3) primary prevent ion; <70 mg/dL for patients with C HD or diabetic patien ts with > or = 2 C HD risk factors. L DL-C is now calculat ed using the Nelson-Alirio calculation, wh ich is a validated novel method providin g better accuracy than the Friedewald equation in the estimation of L DL-C. Nelson SS et al . ADELINA. 2013;310( 19): 7305-6011 (http://educati on.Pyreos. com/f aq/YHX732) CHOL/HDLC RATIO 3.1 {CALC} <5.0 N (test code = CHOL/HDLC RATIO) NON HDL CHOLESTEROL 181 {MG/DL <130 For marcelina ents with (test code = NON HDL ARGELIA} diabete s plus 1 CHOLESTEROL) major ASCVD ris k factor, treatin g to a non-HDL-C goa l of <100 mg/dL (LDL -C of <70 mg/dL) is considered a therapeutic opt ion. [facility]] CMP [id number] 15:10:00 Test Item Value Reference Range Interpretation Comments GLUCOSE; Normal 93 mg/dl 65-99 N Fasting refe rence (test code = interval 1547-9) UREA NITROGEN 14 mg/dl 7-25 N (BUN) (test code = UREA NITROGEN (BUN)) CREATININE (test 0.68 mg/dl 0.50-0.99 N For patient s >49 years code = of age, the ref erence CREATININE) limitfor Creati nine is approximately 1 3% higher for peopleidentifie d as -Claudia n. eGFR NON- 91 {ML/MIN/1.7} > OR = 60 N DOMINICAN (test code = eGFR NON-) eGFR 106 {ML/MIN/1.7} > OR = 60 N DOMINICAN (test code = eGFR ) BUN/CREATININE NOT APPLICABLE 6-22 RATIO (test code = BUN/CREATININE RATIO) SODIUM (test code 135 mmol/L 135-146 N = SODIUM) POTASSIUM (test 3.7 mmol/L 3.5-5.3 N code = POTASSIUM) CHLORIDE (test 102 mmol/L 98-110 N code = CHLORIDE) CARBON DIOXIDE 24 mmol/L 20-32 N (test code = CARBON DIOXIDE) CALCIUM (test 9.1 mg/dl 8.6-10.4 N code = CALCIUM) PROTEIN, TOTAL 6.7 g/dl 6.1-8.1 N (test code = PROTEIN, TOTAL) ALBUMIN (test 4.1 g/dl 3.6-5.1 N code = ALBUMIN) GLOBULIN (test 2.6 {G/DL CALC} 1.9-3.7 N code = GLOBULIN) ALBUMIN/GLOBULIN 1.6 {CALC} 1.0-2.5 N RATIO (test code = ALBUMIN/GLOBULIN RATIO) BILIRUBIN, TOTAL; 0.6 mg/dl 0.2-1.2 N Normal (test code = 30336-0) ALKALINE 116 u/l 33-130 N PHSPHATASE (test code = ALKALINE PHSPHATASE) AST; Normal (test 22 u/l 10-35 N code = 1916-6) ALT; Normal (test 28 u/l 6-29 N code = 1742-6) [facility]] CBC (INCLUDES DIFF/PLT)2018-08-27 15:10:00 Test Item Value Reference Range Interpretation Comments WHITE BLOOD CELL COUNT 5.4 {Thousand/u} 3.8-10.8 N (test code = WHITE BLOOD CELL COUNT) RED BLOOD CELL COUNT (test 4.52 {Million/uL} 3.80-5.10 N code = RED BLOOD CELL COUNT) HEMAGLOBIN; Normal (test 13.4 g/dl 11.7-15.5 N code = 07223-2) HEMATOCRIT; Normal (test 39.2 % 35.0-45.0 N code = 4544-3) MCV; Normal (test code = 86.7 fL 80.0-100.0 N 787-2) MCHC; Normal (test code = 34.2 g/dl 32.0-36.0 N 98656-3) RDW; Normal (test code = 13.1 % 11.0-15.0 N 788-0) PLATELET COUNT; Normal 343 {Thousand/u} 140-400 N (test code = 777-3) MPV; Normal (test code = 8.5 fL 7.5-12.5 N 25022-1) ABSOLUTE NEUTROPHILS (test 2187 {cells/uL} 2776-8824 N code = ABSOLUTE NEUTROPHILS) ABSOLUTE LYMPHOCYTES (test 2743 {cells/uL} 850-3900 N code = ABSOLUTE LYMPHOCYTES) ABSOLUTE MONOCYTES (test 378 {cells/uL} 200-950 N code = ABSOLUTE MONOCYTES) ABSOLUTE EOSINOPHILS (test 59 {cells/uL} 15-500 N code = ABSOLUTE EOSINOPHILS) ABSOLUTE BASOPHILS (test 32 {cells/uL} 0-200 N code = ABSOLUTE BASOPHILS) NEUTROPHILS (test code = 40.5 % N NEUTROPHILS) LYMPHOCYTES (test code = 50.8 % N LYMPHOCYTES) MONOCYTES; Normal (test 7.0 % N code = 71999-5) EOSINOPHILS; Normal (test 1.1 % N code = 66361-0) BASOPHILS; Normal (test 0.6 % N code = 70950-6) [facility]] TSH, 3RD GENERATION W/REFLEX TO [id number] 15:10:00 Test Item Value Reference Range Interpretation Comments TSH, 3RD GENERATION W/REFLEX TO 1.77 {MIU/L} 0.40-4.50 N FT4 (test code = TSH, 3RD GENERATION W/REFLEX TO FT4) [facility]
--- NOTE | 2022-09-29 15:13 | RAD REPORT ---
EXAM DESCRIPTION: RAD - Chest Single View - 09/29/2022 3:03 pm CLINICAL HISTORY: CHEST PAIN Chest pain. COMPARISON: No comparisons FINDINGS: Portable technique limits examination quality. The lungs are grossly clear. The heart is normal in size. No displaced fractures. IMPRESSION: No acute intrathoracic process suspected.
[2022-09-29 15:25] LABS: Absolute Lymphocytes (CBC) 2.5 K/uL (0.7-4.9); Hematocrit 40.6 % (36.0-45.0); Lymphocytes % 46.6 % (15.3-44.8); MCV 88.4 fL (80-100); MPV 6.4 fL (7.6-11.3)
[2022-09-29 15:27] LABS: Protime INR 0.9
[2022-09-29 15:50] LABS: Albumin 3.4 g/dL (3.4-5.0); Bilirubin Direct 0.1 mg/dL (0-0.2); Bilirubin Total 0.4 mg/dL (0.2-1.0); Potassium 3.3 mmol/L (3.5-5.1); Protein, Total 7.2 g/dL (6.4-8.2); Troponin High Sensitivity 5.6 pg/mL (<58.9)
--- NOTE | 2022-09-29 16:48 | RAD REPORT ---
EXAM DESCRIPTION: CT - Chest For Pe Angio - 09/29/2022 4:26 pm CLINICAL HISTORY: Chest pain. elevated d-dimer, CP COMPARISON: No comparisons TECHNIQUE: CT angiogram of the pulmonary arteries was performed with MIP. All CT scans are performed using dose optimization technique as appropriate and may include automated exposure control or mA/KV adjustment according to patient size. FINDINGS: No evidence of pulmonary thromboembolism. No acute aortic finding demonstrated. Mild linear atelectasis is seen in both lung bases. The lungs are otherwise clear. No significant pericardial or pleural fluid. Moderate hiatal hernia. No concerning bony finding. IMPRESSION: No evidence of pulmonary thromboembolism. No acute lung findings.
--- NOTE | 2022-09-29 19:51 | P.HP ---
Certification for Inpatient Patient admitted to: Observation With expected LOS: <2 Midnights Patient will require the following post-hospital care: None Practitioner: I am a practitioner with admitting privileges, knowledge of patient current condition, hospital course, and medical plan of care. Services: Services provided to patient in accordance with Admission requirements found in Title 42 Section 412.3 of the Code of Federal Regulations Patient History Date of Service: 09/29/22 Primary Care Provider: Padma Reason for admission: Chest Pain History of Present Illness: Patient is a 71-year-old female with hypertension who presented to the ED with complaints of chest pain. Patient reports that she was driving to her PCPs office when she started feeling substernal chest pain that felt like "a pill was stuck in her esophagus." She states the pain radiated to her right chest. She denies any associated nausea, shortness of breath, or diaphoresis. She states the pain resolved after 20 minutes. Her PCP sent her to the ED to be evaluated. Her EKG in the ED was unremarkable. Vital signs stable. Troponin negative. Labs significant for ddimer 963, potassium 3.3, AST 234, ALT 291, alk phos 455. Troponin negative. Patient denies cardiac history. ED provider wishes to admit patient for observation. Home medications list reviewed: Yes - Past Medical/Surgical History Diabetic: No -: Hypertension -: Depression -: Chronic Back Pain -: Cholecystectomy Psychosocial/ Personal History: Patient lives at home alone. - Family History Father -: Heart disease - Social History Smoking Status: Never smoker Alcohol use: No CD- Drugs: No Caffeine use: Yes Place of Residence: Home Review of Systems 10-point ROS is otherwise unremarkable Cardiovascular: Chest Pain Physical Examination - Physical Exam General: Alert, In no apparent distress HEENT: Atraumatic, PERRLA, EOMI, Sclerae nonicteric Neck: Supple, 2+ carotid pulse no bruit, No LAD, Without JVD or thyroid abnor mality Respiratory: Clear to auscultation bilaterally, Normal air movement Cardiovascular: Regular rate/rhythm, Normal S1 S2 Gastrointestinal: Normal bowel sounds, No tenderness Musculoskeletal: No tenderness Integumentary: No rashes Neurological: Normal speech, Normal strength at 5/5 x4 extr, Normal tone, Normal affect - Studies Laboratory Data (last 24 hrs) 09/29/22 15:05: PT 9.9, INR 0.90 09/29/22 15:05: WBC 5.40, Hgb 13.5, Hct 40.6, Plt Count 379 09/29/22 15:05: Sodium 137, Potassium 3.3 L, BUN 11, Creatinine 0.73, Glucose 94, Total Bilirubin 0.4, AST 234 H, ALT 291 H, Alkaline Phosphatase 455 H Assessment and Plan - Problems (Diagnosis) (1) Chest pain Current Visit: Yes Status: Acute Qualifiers: Chest pain type: unspecified Qualified Code(s): R07.9 - Chest pain, unspecified (2) Hypertension Current Visit: Yes Status: Chronic Qualifiers: Hypertension type: primary hypertension Qualified Code(s): I10 - Essential (primary) hypertension (3) Elevated LFTs Current Visit: Yes Status: Chronic - Plan Patient is admitted for observation. Monitor on telemetry. Cardiology consult. 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 Initial troponin negative, repeats pending. Chest pain has resolved. Aspirin and atorvastatin daily. Patient states that she has chronic elevated LFTs. She recently had an abdominal MRI to further evaluate that was negative. Monitor and replete electrolytes per protocol. Reconcile and continue home medications. Lovenox for VTE ppx. Full code. Discharge Plan: Home Plan to discharge in: 24 Hours - Advance Directives Does patient have a Living Will: Yes Does patient have a Durable POA for Healthcare: Yes - Code Status/Comfort Care Code Status Assessed: Yes (Full) Critical Care: No Time Spent Managing Pts Care (In Minutes): 50
[2022-09-29 23:00] LABS: SARS-CoV-2 Antigen Rapid Res Negative (Negative)
--- NOTE | 2022-09-29 23:01 | RAD REPORT ---
EXAM DESCRIPTION: US - Abdomen Exam Limited - 09/29/2022 9:34 pm CLINICAL HISTORY: chest pain, elevated LFTs COMPARISON: Abdomen Exam Complete dated 04/19/2022; Chest For Pe Angio dated 09/29/2022; Mri Abdomen W /Wo Cont dated 09/24/2022 FINDINGS: The gallbladder is absent surgically. The common bile duct is mildly prominent measuring 8 mm. The liver demonstrates no significant pathologic finding. IMPRESSION: Mildly prominent common bile duct status post cholecystectomy.
[2022-09-30 00:59] VITALS: BMI 26.4
[2022-09-30] MEDS ORDERED: ACETAMINOPHEN 500 MG TAB PO PRN (00:59)
[2022-09-30] MEDS ORDERED: ONDANSETRON 4 MG/2 ML VIAL IV PRN (00:59)
[2022-09-30] MEDS ORDERED: ATORVASTATIN 40 MG TAB PO SCH (00:59)
--- NOTE | 2022-09-30 01:01 | EDPHYS ---
Physician Documentation [facility] Name: Jaclyn Brewster Age: 71 yrs Sex: Female : 1950 Arrival Date: 09/29/2022 Time: 14:21 Bed 7 Private MD: ED Physician Jarrod Newberry HPI: 09/29 16:05 This 71 yrs old Female presents to ER via Ambulatory with complaints of Chest Pain. rn 16:05 The patient or guardian reports chest pain that is located primarily in the substernal rn area. Onset: just prior to arrival. The pain radiates to the right shoulder. Associated signs and symptoms: Pertinent positives: None. Pertinent negatives: abdominal pain, cough, diaphoresis, dizziness, lower extremity swelling, palpitations, shortness of breath, syncope, vomiting. The chest pain is described as stabbing. Duration: The patient or guardian reports multiple episodes, that are intermittent. Modifying factors: The symptoms are alleviated by nothing. the symptoms are aggravated by deep breath. Severity of pain: At its worst the pain was moderate in the emergency department the pain has improved. The patient has not experienced similar symptoms in the past. The patient has been recently seen by a physician:. Historical: - Home Meds: 23:40 [place] 10-325 mg Oral tab [Active]; tizanidine 4 mg oral cap [Active]; metoprolol pf1 succinate 50 mg oral CSpX [Active]; losartan 50 mg oral tab [Active]; Pristiq 100 mg oral Tb24 [Active]; propranolol 10 mg Oral tab [Active]; alprazolam 1 mg Oral tab [Active]; zolpidem 10 mg Oral tab [Active]; 09/30 00:05 ondansetron HCl 4 mg Oral tab [Active]; omeprazole 40 mg Oral cpDR [Active]; pf1 valacyclovir 500 mg Oral tab [Active]; amlodipine oral [Active]; - PMHx: 09/29 14:25 Liver problem; ld1 - PSHx: 14:25 None; ld1 - Immunization history:: Adult Immunizations up to date, Client reports receiving the 2nd dose of the Covid vaccine. - Social history:: Smoking status: Patient denies any tobacco usage or history of. Patient/guardian denies using alcohol. - Family history:: not pertinent. - Hospitalizations: : No recent hospitalization is reported. ROS: 16:05 Constitutional: Negative for fever, chills, and weight loss, Eyes: Negative for injury, rn pain, redness, and discharge, Neck: Negative for injury, pain, and swelling, Cardiovascular: Negative for palpitations, and edema, Respiratory: Negative for shortness of breath, cough, wheezing Abdomen/GI: Negative for abdominal pain, nausea, vomiting, diarrhea, and constipation, Back: Negative for injury and pain, MS/Extremity: Negative for injury and deformity, Skin: Negative for injury, rash, and discoloration, Neuro: Negative for headache, weakness, numbness, tingling, and seizure. Exam: 16:05 Constitutional: This is a well developed, well nourished patient who is awake, alert, rn and in no acute distress. Head/Face: Normocephalic, atraumatic. Eyes: Periorbital areas with no swelling, redness, or edema. Chest/axilla: Normal chest wall appearance and motion. Nontender with no deformity. No lesions are appreciated. Cardiovascular: Regular rate and rhythm. No pulse deficits. Respiratory: No increased work of breathing, no retractions or nasal flaring. Abdomen/GI: Soft, non-tender Skin: Warm, dry MS/ Extremity: Pulses equal, no cyanosis. Neuro: Awake and alert, GCS 15 16:12 ECG was reviewed by the Attending Physician. rn Vital Signs: 14:23 Pulse 71; Resp 18; Pulse Ox 99% on R/A; Pain 9/10; ld1 14:56 BP 152 / 82; tw2 15:09 BP 144 / 72; Pulse 62; Resp 17; Temp 98.1(TE); Pulse Ox 97% on R/A; Weight 63.05 kg; tw2 Height 5 ft. 0 in. (152.40 cm); 16:09 BP 132 / 69; Pulse 61; Resp 17; Pulse Ox 98% on R/A; tw2 19:00 BP 168 / 86; Pulse 67; Resp 18; Temp 98.2; Pulse Ox 96% ; pf1 20:00 BP 130 / 90; Pulse 68; Resp 18; Pulse Ox 98% on R/A; kl 23:35 BP 155 / 90; Pulse 70; Resp 18; Pulse Ox 99% on R/A; kl 15:09 Body Mass Index 27.15 (63.05 kg, 152.40 cm) tw2 MDM: 14:22 Patient medically screened. rn 09/29 14:28 Order name: Basic Metabolic Panel; Complete Time: 16:00 rn 09/29 14:28 Order name: CBC with Diff; Complete Time: 15:44 rn 09/29 14:28 Order name: D-Dimer; Complete Time: 16:00 rn 09/29 14:28 Order name: LFT's; Complete Time: 16:00 rn 09/29 14:28 Order name: NT PRO-BNP; Complete Time: 16:00 rn 09/29 14:28 Order name: PT-INR; Complete Time: 16:00 rn 09/29 14:28 Order name: Troponin HS; Complete Time: 16:00 rn 09/29 14:28 Order name: XRAY Chest (1 view); Complete Time: 15:22 rn 09/29 14:28 Order name: EKG; Complete Time: 14:29 rn 09/29 14:28 Order name: Cardiac monitoring; Complete Time: 14:56 rn 09/29 14:28 Order name: EKG - Nurse/Tech; Complete Time: 14:56 rn 09/29 15:46 Order name: CT Chest For PE Angio; Complete Time: 16:53 rn 09/29 16:55 Order name: US Abdomen Limited rn 09/29 20:39 Order name: SARS RAPID as6 09/29 14:28 Order name: IV Saline Lock; Complete Time: 15:08 rn 09/29 14:28 Order name: Labs collected and sent; Complete Time: 15:08 rn 09/29 14:28 Order name: O2 Per Protocol; Complete Time: 14:56 rn 09/29 14:28 Order name: O2 Sat Monitoring; Complete Time: 14:56 rn EC:12 Rate is 59 beats/min. Rhythm is regular. QRS [place] is Normal. WI interval is normal. QRS rn interval is normal. QT interval is normal. No Q waves. T waves are Normal. No ST changes noted. Clinical impression: Sinus bradycardia. Interpreted by me. Reviewed by me. Administered Medications: No medications were administered Disposition Summary: 09/29/22 20:01 Hospitalization Ordered Hospitalization Status: Observation rn Provider: Stephane Pat rn Condition: Stable rn Problem: new rn Symptoms: have improved rn Bed/Room Type: Standard rn Location: Telemetry/MedSurg (observation)(09/29/22 21:47) cg Room Assignment: [facility](09/29/22 23:18) cg Diagnosis - Chest pain, unspecified rn Forms: - Medication Reconciliation Form rn - SBAR form rn Signatures: Dispatcher [employer] EDJarrod Lamb MD MD rn Garcia, Cindy, RN RN Iram Nielsen RN RN Elvi neves RN RN pf1 Corrections: (The following items were deleted from the chart) 20:57 20:01 Telemetry/MedSurg (observation) rn cg 20:57 20:01 rn cg 21:47 20:57 [facility] ER HOLD cg cg 21:47 20:57 ERHOLD- cg cg 23:18 21:47 cg cg 09/30 00:07 09/29 14:25 Allergies: No Known Allergies; ld1 pf1 09/30 00:07 00:05 Allergies: ondansetron HCl; pf1 pf1
--- NOTE | 2022-09-30 01:01 | ER ---
Nurse's Notes [facility] Name: Jaclyn Brewster Age: 71 yrs Sex: Female : 1950 Arrival Date: 09/29/2022 Time: 14:21 Bed 7 Private MD: Diagnosis: Chest pain, unspecified Presentation: 09/29 14:23 Chief complaint: Patient states: I was at Dr. Rouse office this morning to discuss my ld1 MRI results - MRI was done for liver enzymes being abnormal. Pt was sent to ER due to severe chest pain at Dr. Rouse office. Upon arrival to ER pt c/o severe sharp pain in mid chest. Coronavirus screen: At this time, the client does not indicate any symptoms associated with coronavirus-19. Ebola Screen: No symptoms or risks identified at this time. Initial Sepsis Screen: Does the patient meet any 2 criteria? No. Patient's initial sepsis screen is negative. Does the patient have a suspected source of infection? No. Patient's initial sepsis screen is negative. Risk Assessment: Do you want to hurt yourself or someone else? Patient reports no desire to harm self or others. Onset of symptoms was September 29, 2022. 14:23 Method Of Arrival: Ambulatory ld1 14:23 Acuity: MELISSA 3 ld1 Triage Assessment: 14:25 General: Appears in no apparent distress. comfortable, Behavior is calm, cooperative, ld1 appropriate for age. Pain: Complains of pain in chest Pain does not radiate. Pain currently is 9 out of 10 on a pain scale. Quality of pain is described as pressure, sharp, shooting, throbbing, Pain began 1 hour ago. Is continuous. EENT: No signs and/or symptoms were reported regarding the EENT system. Neuro: Level of Consciousness is awake, alert, obeys commands, Oriented to person, place, time, situation, Appropriate for age. Cardiovascular: Capillary refill < 3 seconds Patient's skin is warm and dry. Respiratory: Airway is patent Respiratory effort is even, unlabored. GI: Abdomen is round non-distended. : No signs and/or symptoms were reported regarding the genitourinary system. Derm: No signs and/or symptoms reported regarding the dermatologic system. Musculoskeletal: No signs and/or symptoms reported regarding the musculoskeletal system. Historical: - Home Meds: 23:40 [place] 10-325 mg Oral tab [Active]; tizanidine 4 mg oral cap [Active]; metoprolol pf1 succinate 50 mg oral CSpX [Active]; losartan 50 mg oral tab [Active]; Pristiq 100 mg oral Tb24 [Active]; propranolol 10 mg Oral tab [Active]; alprazolam 1 mg Oral tab [Active]; zolpidem 10 mg Oral tab [Active]; 09/30 00:05 ondansetron HCl 4 mg Oral tab [Active]; omeprazole 40 mg Oral cpDR [Active]; pf1 valacyclovir 500 mg Oral tab [Active]; amlodipine oral [Active]; - PMHx: 09/29 14:25 Liver problem; ld1 - PSHx: 14:25 None; ld1 - Immunization history:: Adult Immunizations up to date, Client reports receiving the 2nd dose of the Covid vaccine. - Social history:: Smoking status: Patient denies any tobacco usage or history of. Patient/guardian denies using alcohol. - Family history:: not pertinent. - Hospitalizations: : No recent hospitalization is reported. Screenin:57 Abuse screen: Denies threats or abuse. Nutritional screening: No deficits noted. tw2 Tuberculosis screening: No symptoms or risk factors identified. Fall Risk None identified. Assessment: 15:10 Reassessment: Patient appears in no apparent distress at this time. No changes from tw2 previously documented assessment. Patient and/or family updated on plan of care and expected duration. Pain level reassessed. Patient is alert, oriented x 3, equal unlabored respirations, skin warm/dry/pink. 16:09 Reassessment: Patient appears in no apparent distress at this time. No changes from tw2 previously documented assessment. Patient and/or family updated on plan of care and expected duration. Pain level reassessed. Patient is alert, oriented x 3, equal unlabored respirations, skin warm/dry/pink. 19:00 Pain: Complains of pain in Patient C/O right side back. Patient denies any chest pain pf1 at this time. 19:00 General: Appears in no apparent distress. comfortable, well groomed, well developed. pf1 Neuro: No deficits noted. Cardiovascular: No deficits noted. Respiratory: No deficits noted. GI: No deficits noted. : No deficits noted. EENT: No deficits noted. Vital Signs: 14:23 Pulse 71; Resp 18; Pulse Ox 99% on R/A; Pain 9/10; ld1 14:56 BP 152 / 82; tw2 15:09 BP 144 / 72; Pulse 62; Resp 17; Temp 98.1(TE); Pulse Ox 97% on R/A; Weight 63.05 kg; tw2 Height 5 ft. 0 in. (152.40 cm); 16:09 BP 132 / 69; Pulse 61; Resp 17; Pulse Ox 98% on R/A; tw2 19:00 BP 168 / 86; Pulse 67; Resp 18; Temp 98.2; Pulse Ox 96% ; pf1 20:00 BP 130 / 90; Pulse 68; Resp 18; Pulse Ox 98% on R/A; kl 23:35 BP 155 / 90; Pulse 70; Resp 18; Pulse Ox 99% on R/A; kl 15:09 Body Mass Index 27.15 (63.05 kg, 152.40 cm) tw2 ED Course: 14:21 Patient arrived in ED. vg1 14:21 Placed in gown. Bed in low position. Call light in reach. Side rails up X 1. Cardiac tw2 monitor on. Pulse ox on. NIBP on. Warm blanket given. 14:22 Jarrod Newberry MD is Attending Physician. rn 14:25 Triage completed. ld1 14:25 Arm band placed on right wrist. ld1 14:56 Linda Johnston, AJIT is Primary Nurse. tw2 14:57 Patient maintains SpO2 saturation greater than 95% on room air. tw2 15:05 XRAY Chest (1 view) In Process Unspecified. EDMS 15:08 Inserted saline lock: 20 gauge in left antecubital area, using aseptic technique. Blood tw2 collected. 16:28 CT Chest For PE Angio In Process Unspecified. EDMS 20:00 Stephane Pat MD is Hospitalizing Provider. rn 23:35 No provider procedures requiring assistance completed. Patient admitted, IV remains in kl place. Administered Medications: No medications were administered Medication: 14:57 VIS not applicable for this client. tw2 Outcome: 20:01 Decision to Hospitalize by Provider. rn 23:35 Admitted to Med/surg accompanied by tech, via wheelchair. kl 23:35 Condition: stable 23:35 Instructed on the need for admit, Demonstrated understanding of instructions. 23:58 Admitted to Med/surg accompanied by nurse, via wheelchair, Report called to AJIT Shepard pf1 09/30 00:08 Patient left the ED. pf1 Signatures: Dispatcher [employer] EDAgustina Swain, RN Jarrod Akers MD MD rn Wise, Tara, RN RN tw2 Rachel Bolanos RN RN 1 Iram Hutson RN RN sandy1 Elvi pedroza RN RN pf1 Corrections: (The following items were deleted from the chart) 00:09/29 14:25 Allergies: No Known Allergies; ld1 pf1 09/30 00:07 00:05 Allergies: ondansetron HCl; pf1 pf1
[2022-09-30] MEDS ORDERED: POTASSIUM CL SA 10 MEQ TAB PO ONE (01:17)
[2022-09-30 01:44] LABS: Specific Gravity > 1.030 (1.005-1.030); Urine Bilirubin NEGATIVE (Negative); Urine Blood Negative (Negative); Urine Clarity Clear (Clear); Urine Color Light-Yellow (Yellow); Urine Glucose NEGATIVE (Negative); Urine Protein NEGATIVE (Negative); Urine Urobilinogen Normal (Normal)
[2022-09-30 04:26] VITALS: O2SAT 94
[2022-09-30 06:05] LABS: Hematocrit 39.3 % (36.0-45.0); Lymphocytes % 53.5 % (15.3-44.8); MCV 88.7 fL (80-100); MPV 6.4 fL (7.6-11.3); RBC Red Blood Cell Count 4.44 M/uL (3.86-4.86)
[2022-09-30 06:32] LABS: Magnesium 2.4 mg/dL (1.8-2.4); Phosphorus 3.1 mg/dL (2.5-4.9); Potassium 4.4 mmol/L (3.5-5.1); Thyroid Stimulating Hormone 1.18 uIU/mL (0.360-3.740)
--- NOTE | 2022-09-30 08:22 | EKG ---
Test Date: 2022-09-29 Test Time: 14:35:13 Real Estate Broker: DARRIUS MEASUREMENT RESULTS: Intervals: Rate: 59 IA: 204 QRSD: 76 QT: 386 QTc: 382 [place]: P: 36 IA: 204 QRS: 27 T: 23 INTERPRETIVE STATEMENTS: Sinus bradycardia Otherwise normal ECG No previous ECG available for comparison Electronically Signed On 09-30-22 08:19:52 BASE MANAGER by Ham Crystal
[2022-09-30] MEDS ORDERED: ENOXAPARIN 40 MG/0.4 ML SQ SCH (09:00)
[2022-09-30] MEDS ORDERED: ASPIRIN EC 81 MG TAB PO SCH (09:00)
[2022-09-30] MEDS ORDERED: HYDROCORTISONE SUC 100 MG INJ IV ONE (09:59)
[2022-09-30 13:01] VITALS: BP 121/68; TEMP 98
--- NOTE | 2022-09-30 15:01 | ECHO ---
HEIGHT: 5 ft 0 in WEIGHT: 135 lb 9.6 oz DATE OF STUDY: 09/30/[address]: 2-DIMENSIONAL: YES M.MODE: YES DOPPLER: YES COLOR FLOW: YES TDS: YES PORTABLE: YES DEFINITY: BUBBLE STUDY: DIAGNOSIS: CHEST PAIN CARDIAC HISTORY: CATHERIZATION: SURGERY: PROSTHETIC VALVE: PACEMAKER: MEASUREMENTS (cm) DIASTOLIC (NORMALS) SYSTOLIC (NORMALS) IVSd 1.0 (0.6-1.2) LA Diam 3.4 (1.9-4.0) LVEF 69% LVIDd 3.5 (3.5-5.7) LVIDs 2.2 (2.0-3.5) %FS 38% LVPWd 0.9 (0.6-1.2) Ao Diam 3.1 (2.0-3.7) 2 DIMENSIONAL ASSESSMENT: RIGHT ATRIUM: NORMAL LEFT ATRIUM: NORMAL RIGHT VENTRICLE: NORMAL LEFT VENTRICLE: NORMAL TRICUSPID VALVE: MILD TRICUSPID REGURGITATION MITRAL VALVE: TRACE MITRAL REGURGITATION PULMONIC VALVE: NORMAL AORTIC VALVE: NORMAL PERICARDIAL EFFUSION: NONE AORTIC ROOT: NORMAL LEFT VENTRICULAR WALL MOTION: NORMAL DOPPLER/COLOR FLOW: MILD TRICUSPID REGURGITATION COMMENTS: 1. NORMAL LEFT VENTRICULAR EJECTION FRACTION 60-65% 2. NORMAL WALL MOTION 3. MILD TRICUSPID REGURGITATION 4. NORMAL RIGHT VENTRICULAR SYSTOLIC PRESSURE OF 20-25 mmHg. TECHNOLOGIST: HIMANSHU JOSHI
--- NOTE | 2022-10-02 15:12 | CON ---
Date of Consultation: 09/30/2022 Admitted on 09/29/[address] Pat's service with chest pain. History Of Present Illness: Ms. Brewster is 72. Came in with sharp, stabbing chest pain that lasted ab out 20 minutes, radiating to the right shoulder. No nausea, vomiting, diaphoresis, PND, orthopnea, p edal edema, palpitations, or syncope. She had an elevated D-dimer, elevated liver function tests, el evated cholesterol. Normal troponin, BNP, chest x-ray, and EKG, and she is symptoms free. Past Medical History: Includes hypertension and abnormal liver function tests. Allergies: NONE. Review of Systems: Negative. Social History: Negative. Family History: Negative. Medications: Include losartan, metoprolol Xanax, and Pristiq. Physical Examination: Vital Signs: Stable, afebrile. HEENT: Negative. Neck: Supple without any bruit, lymphadenopathy, JVD, or thyromegaly. Chest: Clear to auscultation and percussion. Cardiac: Revealed a regular rhythm and rate. No murmurs, gallops, or rubs. Abdomen: Benign. Extremities: Revealed no clubbing, cyanosis, or edema. Diagnostic Data: As stated earlier. Impression And Plan: Atypical chest pain. Normal echo, normal EKG, normal chest x-ray, normal tropo emperatriz. Most likely musculoskeletal. Nevertheless, she has not risk factors. I think an outpatient Le xiscan is indicated. Her other problems include hypertension, elevated liver enzymes, dyslipidemia. She is on appropriate therapy. Her liver function has been followed by Dr. Rouse as an outpatient. She can go home whenever it is okay with Dr. Pat. ERIN/BHARAT Voice ID: [id number] Report ID: [id number]
== END 2022-09-30 13:30 | disposition home or self-care (01) ==
LOC: ER 14:18 → ERHOLD 19:48 → 2ND 09-30
PROVIDERS: ADMIT Hospitalist; ATTEND Hospitalist
DX: R07.9 Chest pain, unspecified (principal); I10 Essential (primary) hypertension; R79.89 Other specified abnormal findings of blood chemistry; Z20.822 Contact with and (suspected) exposure to COVID-19
CPT/HCPCS: 93005; 93306; 85025 ×2; 81001; 80048 ×2; 36415; 83735; 84100; 85610; 80061; 85379; 80076; 84443; 84484 ×3; 83880; 71275; 71045; 76705; 99285; 87811; Q9967; J1720; G0378 ×3